=== PATIENT | male | born 1990 | race Caucasian/White ===

== ENCOUNTER 2016-08-09 15:58 | Emergency (ER) | payer SELFPAY ==
[2016-08-09 16:10] VITALS: RESP 17; TEMP 97.4
--- NOTE | 2016-08-09 16:17 | ED ---
General Adult HPI - General Chief complaint: Nausea/Vomiting/Diarrhea Stated complaint: Diareah/chest cold Time Seen by Provider: 08/09/16 16:06 Source: patient, RN notes reviewed Mode of arrival: ambulatory Limitations: no limitations - History of Present Illness Initial comments: This is a 26-year-old male who presents with diarrhea 7 days. Patient states the diarrhea is very watery and he goes about 5 times per day. Patient states he has been keeping down food and has been drinking fluids. Patient denies any nausea or vomiting. Patient does state he has had some mild abdominal discomfort associated with the diarrhea. Patient denies any fever/chills, cough , shortness of breath. Patient does admit to some mild congestion. Patient denies any sick contacts or recent travel. Patient denies being on any recent antibiotics. Patient denies any hematochezia. Patient denies any recent shortness breath, chest pain, back pain, numbness, tingling, hematuria, headache, or visual changes, or any other complaints. - Related Data Previous Rx's Medication Instructions Recorded Ibuprofen [Motrin] 600 mg PO Q6HR PRN #20 tab 05/07/16 Allergies Allergy/AdvReac Type Severity Reaction Status Date / Time No Known Allergies Allergy Verified 08/09/16 16:10 Review of Systems ROS Statement: Those systems with pertinent positive or pertinent negative responses have been documented in the HPI. ROS Other: All systems not noted in ROS Statement are negative. Past Medical History Past Medical History: No Reported History Additional Past Medical History / Comment(s): MIGRAINE History of Any Multi-Drug Resistant Organisms: MRSA Date of last positivie culture/infection: 2005 MDRO Source:: buttocks Past Surgical History: No Surgical Hx Reported Past Psychological History: ADD/ADHD, Bipolar, Depression Smoking Status: Current every day smoker Past Alcohol Use History: None Reported Past Drug Use History: None Reported General Exam - General Exam Comments Initial Comments: General: The patient is awake and alert, in no distress, and does not appear acutely ill. Eye: Pupils are equal, round and reactive to light, extra-ocular movements are intact. No nystagmus. There is normal conjunctiva bilaterally. No signs of icterus. Ears: TMs pink and pearly with intact cone of light bilaterally. Normal external ear canals Nose: Nasal turbinates pink and moist Mouth and throat: There are moist mucous membranes and no oral lesions. Neck: The neck is supple, there is no tenderness or JVD. Cardiovascular: There is a regular rate and rhythm. No murmur, rub or gallop is appreciated. Respiratory: Lungs are clear to auscultation, respirations are non-labored, breath sounds are equal. No wheezes, stridor, rales, or rhonchi. Gastrointestinal: Soft, non-distended, non-tender abdomen without masses or organomegaly noted. There is no rebound or guarding present. Bowel sounds are unremarkable. Musculoskeletal: Normal ROM, no tenderness. Strength 5/5. Sensation intact. Radial pPulses equal bilaterally 2+. Neurological: A&O x 3. CN II-XII intact, There are no obvious motor or sensory deficits. Coordination appears grossly intact. Speech is normal. Skin: Skin is warm and dry and no rashes or lesions are noted. Psychiatric: Cooperative, appropriate mood & affect, normal judgment. Limitations: no limitations Course Vital Signs 08/09/16 16:08 Temperature 97.4 F L Pulse Rate 80 Respiratory 17 Rate Blood Pressure 126/70 Medical Decision Making - Medical Decision Making This is a 26-year-old male presents with diarrhea 7 days. On physical exam abdomen is soft, nontender, nondistended there is no guarding or rigidity. No right lower quadrant tenderness or rebound tenderness. Patient is afebrile in the EC today. Mucous membranes are moist. Basic labs were drawn and reviewed. CBC and BMP were within normal limits. Stool cultures are pending, C. diff and ova and parasites are pending as patient could not give a sample today. I discussed results with patient. I discussed with patient to be sure to drink plenty of fluids. Discussed the patient should send in stool cultures as soon as possible. I discussed [id number] Pepto-Bismol for symptomatic relief. I discussed return parameters. Discussed that patient needs to follow-up with his primary care physician in the next 1-2 days or return to the EC for any worsening symptoms or for any further concerns. Patient was given a primary care referral today. Patient was receptive to this plan. Patient was discharged home. - Lab Data Result diagrams: 08/09/16 16:55 08/09/16 16:55 Lab Results 08/09/16 08/09/16 Range/Units 16:55 16:55 WBC 4.0 (3.8-10.6) k/uL RBC 5.20 (4.30-5.90) m/uL Hgb 15.4 (13.0-17.5) gm/dL Hct 44.5 (39.0-53.0) % MCV 85.5 (80.0-100.0) fL MCH 29.5 (25.0-35.0) pg MCHC 34.5 (31.0-37.0) g/dL RDW 11.9 (11.5-15.5) % Plt Count 165 (150-450) k/uL Neutrophils % 56 % Lymphocytes % 33 % Monocytes % 7 % Eosinophils % 1 % Basophils % 1 % Neutrophils # 2.2 (1.3-7.7) k/uL Lymphocytes # 1.3 (1.0-4.8) k/uL Monocytes # 0.3 (0-1.0) k/uL Eosinophils # 0.0 (0-0.7) k/uL Basophils # 0.0 (0-0.2) k/uL Sodium 141 (137-145) mmol/L Potassium 4.7 (3.5-5.1) mmol/L Chloride 106 (98-107) mmol/L Carbon Dioxide 25 (22-30) mmol/L Anion Gap 10 mmol/L BUN 14 (9-20) mg/dL Creatinine 0.85 (0.66-1.25) mg/dL Est GFR (MDRD) Af Amer >60 (>60 ml/min/1.73 sqM) Est GFR (MDRD) Non-Af >60 (>60 ml/min/1.73 sqM) Glucose 82 (74-99) mg/dL Calcium 9.4 (8.4-10.2) mg/dL Disposition Clinical Impression: Acute diarrhea Disposition: HOME SELF-CARE Condition: Good Instructions: Acute Diarrhea (ED) Additional Instructions: Please provide stool cultures as soon as possible and follow up with your primary care physician in the next 1-2 days. Please use [id number] Pepto- Bismol for symptom relief. Please be sure to drink plenty of fluids. Please return to the EC for any worsening symptoms or for any further concerns. Referrals: None,Stated [Primary Care Provider] - 1-2 days Ernesto Harman MD [REFERRING] - 1-2 days Charmaine Herbert III, MD [STAFF PHYSICIAN] - 1-2 days Greg Okeefe MD [STAFF PHYSICIAN] - 1-2 days Time of Disposition: 17:27
[2016-08-09 17:07] LABS: Basophils % (A) 1 %; CH 30.1; CHCM 35.3; Eosinophils % (A) 1 %; HCT 44.5 % (39.0-53.0); HDW 2.69; HGB 15.4 gm/dL (13.0-17.5); Luc # (Auto) 0.08; Luc % (Auto) 2; Lymphocytes # (A) 1.3 k/uL (1.0-4.8); Lymphocytes % (A) 33 %; MCH 29.5 pg (25.0-35.0); MCHC 34.5 g/dL (31.0-37.0); MCV 85.5 fL (80.0-100.0); Mean Platelet Volume 9.4; Monocytes # (A) 0.3 k/uL (0-1.0); Monocytes % (A) 7 %; Neutrophils # (A) 2.2 k/uL (1.3-7.7); Neutrophils % (A) 56 %; RDW 11.9 % (11.5-15.5); WBC (Perox) 3.57
[2016-08-09 17:14] LABS: Anion Gap 10 mmol/L; Blood Urea Nitrogen 14 mg/dL (9-20); Calcium 9.4 mg/dL (8.4-10.2); Carbon Dioxide 25 mmol/L (22-30); Chloride 106 mmol/L (98-107); Glucose 82 mg/dL (74-99); Non-African American GFR(MDRD) >60 (>60 ml/min/1.73 sqM); Potassium 4.7 mmol/L (3.5-5.1); Sodium 141 mmol/L (137-145)
[2016-08-09 17:44] VITALS: BP 122/72; PULSE 78
== END 2016-08-09 17:44 | disposition home or self-care (01) ==
LOC: EC 15:58
DX: R19.7 Diarrhea, unspecified (principal); R09.89 Other specified symptoms and signs involving the circulatory and respiratory systems; F17.200 Nicotine dependence, unspecified, uncomplicated
CPT/HCPCS: 36415; 80048; 85025; 99284

== ENCOUNTER 2016-08-16 15:14 | Emergency (ER) | payer SELFPAY ==
[2016-08-16 15:30] VITALS: BP 118/64; PULSE 85; RESP 17; TEMP 98.4
[2016-08-16] MEDS ORDERED: ONDANSETRON ODT 4 MG TAB PO STA (15:45)
--- NOTE | 2016-08-16 15:47 | ED ---
General Adult HPI - General Chief complaint: Nausea/Vomiting/Diarrhea Stated complaint: abdominal pain Time Seen by Provider: 08/16/16 15:33 Source: patient, RN notes reviewed Mode of arrival: ambulatory Limitations: no limitations - History of Present Illness Initial comments: Physical 26-year-old male presents with vomiting that started today. Patient states he's had 4 episodes of vomiting this morning but this has not reoccurred. Patient is eating and drinking without problems. Patient denies any fever but complains of some mild congestion and intermittent sore throat. Patient states he is some mild abdominal pain. Patient denies any sick contacts. Patient denies any constipation, diarrhea, hematochezia, hematemesis and patient denies any cough. Patient denies any recent fever, chills, shortness breath, chest pain, back pain, numbness, tingling, hematuria, dysuria, headache, or visual changes, or any other complaints. - Related Data Previous Rx's Medication Instructions Recorded Ibuprofen [Motrin] 600 mg PO Q6HR PRN #20 tab 05/07/16 Ondansetron Odt [Zofran Odt] 4 mg PO Q8H 3 Days 08/16/16 Allergies Allergy/AdvReac Type Severity Reaction Status Date / Time No Known Allergies Allergy Verified 08/16/16 15:28 Review of Systems ROS Statement: Those systems with pertinent positive or pertinent negative responses have been documented in the HPI. ROS Other: All systems not noted in ROS Statement are negative. Past Medical History Past Medical History: No Reported History Additional Past Medical History / Comment(s): MIGRAINE History of Any Multi-Drug Resistant Organisms: MRSA Date of last positivie culture/infection: 2005 MDRO Source:: buttocks Past Surgical History: No Surgical Hx Reported Past Psychological History: ADD/ADHD, Bipolar, Depression Smoking Status: Current every day smoker Past Alcohol Use History: None Reported Past Drug Use History: None Reported General Exam - General Exam Comments Initial Comments: General: The patient is awake and alert, in no distress, and does not appear acutely ill. Eye: Pupils are equal, round and reactive to light, extra-ocular movements are intact. No nystagmus. There is normal conjunctiva bilaterally. No signs of icterus. Ears: TMs pink and pearly with intact cone of light bilaterally. Normal external ear canals Nose: Nasal turbinates pink and moist Mouth and throat: There are moist mucous membranes and no oral lesions. Neck: The neck is supple, there is no tenderness or JVD. Cardiovascular: There is a regular rate and rhythm. No murmur, rub or gallop is appreciated. Respiratory: Lungs are clear to auscultation, respirations are non-labored, breath sounds are equal. No wheezes, stridor, rales, or rhonchi. Gastrointestinal: Soft, non-distended, non-tender abdomen without masses or organomegaly noted. There is no rebound or guarding present. No CVA tenderness. Bowel sounds are unremarkable. Musculoskeletal: Normal ROM, no tenderness. Strength 5/5. Sensation intact. Radial Pulses equal bilaterally 2+. Neurological: A&O x 3. CN II-XII intact, There are no obvious motor or sensory deficits. Coordination appears grossly intact. Speech is normal. Skin: Skin is warm and dry and no rashes or lesions are noted. Psychiatric: Cooperative, appropriate mood & affect, normal judgment. Limitations: no limitations Course Vital Signs 08/16/16 15:28 Temperature 98.4 F Pulse Rate 85 Respiratory 17 Rate Blood Pressure 118/64 O2 Sat by Pulse 98 Oximetry Medical Decision Making - Medical Decision Making This is a 26-year-old male presents with vomiting that started today. On physical exam abdomen is soft, nontender, nondistended and patient is afebrile in the EC. Patient has some mild congestion but lungs are clear to auscultation bilaterally. Patient was given Zofran in the EC today. Influenza was checked and came back negative. Patient states he feels much better after a dose of Zofran. I discussed that patient will be sent home with a prescription for Zofran. Patient did not have an episode of emesis in the EC today. I discussed the patient is to drink plenty of fluids. I discussed return parameters. Discussed that patient should follow up with PCP in one to 2 days or return to the EC for any worsening symptoms or for any further concerns. Patient was receptive to this plan and patient will be discharged home. - Lab Data Lab Results 08/16/16 Range/Units 16:08 Influenza Type A RNA Not Detected (Not Detectd) Influenza Type B (PCR) Not Detected (Not Detectd) Disposition Clinical Impression: Vomiting Disposition: HOME SELF-CARE Condition: Good Instructions: Acute Nausea and Vomiting (ED) Additional Instructions: Please use Zofran as prescribed. Please be sure to drink plenty of fluids. Please use medication as discussed. Please follow-up with family doctor in the next 2 days of symptoms have not improved. Please return to emergency room if the symptoms increase or worsen or for any other concerns. Prescriptions: Ondansetron Odt [Zofran Odt] 4 mg PO Q8H 3 Days Referrals: None,Stated [Primary Care Provider] - 1-2 days Renetta Bueno MD [STAFF PHYSICIAN] - 1-2 days Ernesto Harman MD [REFERRING] - 1-2 days Time of Disposition: 16:55
== END 2016-08-16 17:02 | disposition home or self-care (01) ==
LOC: EC 15:14
DX: R11.10 Vomiting, unspecified (principal); F17.200 Nicotine dependence, unspecified, uncomplicated; Z86.14 Personal history of Methicillin resistant Staphylococcus aureus infection
CPT/HCPCS: 87502; 99284

== ENCOUNTER 2017-03-26 | Emergency (ER) | payer OTHER ==
--- NOTE | 2017-03-26 00:45 | ED ---
General Adult HPI - General Chief complaint: Skin/Abscess/Foreign Body Stated complaint: bruise on back Time Seen by Provider: 03/26/17 00:10 Source: patient, RN notes reviewed Mode of arrival: ambulatory Limitations: no limitations - History of Present Illness Initial comments: Patient 26-year-old male who presents emergency room today with chief complaint of a bruise to his back. Does admit that he had a clot in the middle of his back and his friend tried to rub them not noticed that there was a bruise. He says bruises gone. Cystitis tenderness was earlier in the day. Denies any other complaints or symptoms. Patient denies any recent fever, chills, shortness of breath, chest pain, abdominal pain, nausea or vomiting, numbness or tingling, dysuria or hematuria, constipation or diarrhea, headaches or visual changes, or any other complaints. - Related Data Home Medications Medication Instructions Recorded Confirmed No Known Home Medications [No 03/26/17 03/26/17 Known Home Medications] Allergies Allergy/AdvReac Type Severity Reaction Status Date / Time No Known Allergies Allergy Verified 03/26/17 00:04 Review of Systems ROS Statement: Those systems with pertinent positive or pertinent negative responses have been documented in the HPI. ROS Other: All systems not noted in ROS Statement are negative. Past Medical History Past Medical History: No Reported History Additional Past Medical History / Comment(s): MIGRAINE History of Any Multi-Drug Resistant Organisms: MRSA Date of last positivie culture/infection: 2005 MDRO Source:: buttocks Past Surgical History: No Surgical Hx Reported Past Psychological History: ADD/ADHD, Bipolar, Depression Smoking Status: Current every day smoker Past Alcohol Use History: None Reported Past Drug Use History: None Reported General Exam - General Exam Comments Initial Comments: General: The patient is awake and alert, in no distress, and does not appear acutely ill. Eye: Pupils are equal, round and reactive to light, extra-ocular movements are intact. No nystagmus. There is normal conjunctiva bilaterally. No signs of icterus. Ears, nose, mouth and throat: There are moist mucous membranes and no oral lesions. Neck: The neck is supple, there is no tenderness or JVD. Cardiovascular: There is a regular rate and rhythm. No murmur, rub or gallop is appreciated. Respiratory: Lungs are clear to auscultation, respirations are non-labored, breath sounds are equal. No wheezes, stridor, rales, or rhonchi. Musculoskeletal: Normal ROM, no tenderness. Strength 5/5. Sensation intact. Pulses equal bilaterally 2+. Neurological: A&O x 3. CN II-XII intact, There are no obvious motor or sensory deficits. Coordination appears grossly intact. Speech is normal. Skin: Skin is warm and dry and no rashes or lesions are noted. Psychiatric: Cooperative, appropriate mood & affect, normal judgment. Limitations: no limitations Course Vital Signs 03/26/17 00:02 Temperature 98.2 F Pulse Rate 87 Respiratory 20 Rate Blood Pressure 148/85 O2 Sat by Pulse 98 Oximetry Medical Decision Making - Medical Decision Making Patient has normal exam here in the emergency room. No tenderness over the thoracic or lumbar spine. No bruising or swelling. No tenderness or pain on exam. Was discussed with patient about possible spasm. Advised to follow up with Family doctor. Patient asymptomatic here in emergency room. Disposition Clinical Impression: Back pain Disposition: HOME SELF-CARE Condition: Good Instructions: Back Pain (ED) Additional Instructions: Please use medication as discussed. Please follow-up with family doctor in the next 2 days of symptoms have not improved. Please return to emergency room if the symptoms increase or worsen or for any other concerns. Referrals: None,Stated [Primary Care Provider] - 1-2 days Time of Disposition: 00:44
[2017-03-26 01:05] VITALS: BP 132/83; PULSE 80; RESP 16; TEMP 97.8
== END 2017-03-26 01:13 | disposition home or self-care (01) ==
LOC: EC
DX: M54.6 Pain in thoracic spine (principal); F17.200 Nicotine dependence, unspecified, uncomplicated; Z86.14 Personal history of Methicillin resistant Staphylococcus aureus infection
CPT/HCPCS: 99283

== ENCOUNTER 2017-03-28 16:00 | Emergency (ER) | payer OTHER ==
[2017-03-28 16:17] VITALS: RESP 18
--- NOTE | 2017-03-28 16:38 | ED ---
General Adult HPI - General Source: patient, RN notes reviewed Mode of arrival: ambulatory Limitations: no limitations <Myra Hdz - Last Filed: 03/28/17 19:57> <Landon Mayo - Last Filed: 03/28/17 21:05> - General Chief complaint: Psychiatric Symptoms Stated complaint: Mental Health Time Seen by Provider: 03/28/17 16:27 - History of Present Illness Initial comments: 26-year-old male presents to the emergency department with a chief complaint of suicidal ideation. Patient states ever since June 19 when his child he 's been having issues. He is nontoxic anyone about them and they're just getting worse. He states now having thoughts to hang himself or cut his wrists. Patient states that he does not have any health concerns at this time. Patient states that he just needs help. He has been admitted to mental health in the past. Patient denies any recent fever, chills, shortness of breath , chest pain, back pain, abdominal pain, nausea vomiting, numbness or tingling, dysuria or hematuria, constipation or diarrhea, headaches or visual changes, or any other current symptoms. (Myra Hdz) - Related Data Home Medications Medication Instructions Recorded Confirmed No Known Home Medications [No 03/26/17 03/28/17 Known Home Medications] Allergies Allergy/AdvReac Type Severity Reaction Status Date / Time No Known Allergies Allergy Verified 03/28/17 16:36 Review of Systems ROS Other: All systems not noted in ROS Statement are negative. <Myra Hdz - Last Filed: 03/28/17 19:57> ROS Other: All systems not noted in ROS Statement are negative. <Landon Mayo - Last Filed: 03/28/17 21:05> ROS Statement: Those systems with pertinent positive or pertinent negative responses have been documented in the HPI. Past Medical History Past Medical History: No Reported History Additional Past Medical History / Comment(s): MIGRAINE History of Any Multi-Drug Resistant Organisms: MRSA Date of last positivie culture/infection: 2005 MDRO Source:: buttocks Past Surgical History: No Surgical Hx Reported Past Psychological History: ADD/ADHD, Bipolar, Depression Smoking Status: Current every day smoker Past Alcohol Use History: Daily Past Drug Use History: None Reported <Myra Hdz - Last Filed: 03/28/17 19:57> General Exam Limitations: no limitations General appearance: alert, in no apparent distress ENT exam: Present: normal exam, mucous membranes moist Neck exam: Present: normal inspection. Absent: tenderness, meningismus, lymphadenopathy Respiratory exam: Present: normal lung sounds bilaterally. Absent: respiratory distress, wheezes, rales, rhonchi, stridor Cardiovascular Exam: Present: regular rate, normal rhythm, normal heart sounds. Absent: systolic murmur, diastolic murmur, rubs, gallop, clicks Extremities exam: Present: normal inspection, full ROM, normal capillary refill. Absent: tenderness, pedal edema, joint swelling, calf tenderness Neurological exam: Present: alert, oriented X3 Psychiatric exam: Present: suicidal ideation. Absent: homicidal ideation Skin exam: Present: warm, dry, intact, normal color. Absent: rash <Myra Hdz - Last Filed: 03/28/17 19:57> Course <Myra Hdz - Last Filed: 03/28/17 19:57> <Landon Mayo - Last Filed: 03/28/17 21:05> Vital Signs 03/28/17 03/28/17 16:13 20:51 Temperature 97.6 F 97.3 F L Pulse Rate 79 63 Respiratory 18 18 Rate Blood Pressure 139/74 135/62 O2 Sat by Pulse 99 100 Oximetry - Reevaluation(s) Reevaluation #1: 03/28/17 19:57 THis case will be signed out to Dr. Mayo. (Myra Hdz) Medical Decision Making <Myra Hdz - Last Filed: 03/28/17 19:57> <Landon Mayo - Last Filed: 03/28/17 21:05> - Medical Decision Making 26-year-old male presents emergency department with chief complaint of suicidal ideation. At this time he does not appear to be suffering from any acute medical emergencies. This time the patient is cleared to be evaluated by psychiatry. (Myra Hdz) Patient was evaluated by EPS to the emergency department. He was denying suicidal ideation at that time. He thinks he just needed to talk to his issues with someone. He was given outpatient referral as well as the emergency psychiatric hotline. I reevaluated the patient, he denies suicidal ideation be. He is comfortable with discharge and feels safe. (Landon Mayo) - Lab Data Lab Results 03/28/17 Range/Units 19:00 Urine Opiates Screen Not Detected (NotDetected) Ur Oxycodone Screen Not Detected (NotDetected) Urine Methadone Screen Not Detected (NotDetected) Ur Propoxyphene Screen Not Detected (NotDetected) Ur Barbiturates Screen Not Detected (NotDetected) U Tricyclic Antidepress Not Detected (NotDetected) Ur Phencyclidine Scrn Not Detected (NotDetected) Ur Amphetamines Screen Not Detected (NotDetected) U Methamphetamines Scrn Not Detected (NotDetected) U Benzodiazepines Scrn Not Detected (NotDetected) Urine Cocaine Screen Not Detected (NotDetected) U Marijuana (THC) Screen Not Detected (NotDetected) Disposition <Myra Hdz - Last Filed: 03/28/17 19:57> Time of Disposition: 21:05 <Landon Mayo - Last Filed: 03/28/17 21:05> Clinical Impression: Depression Disposition: HOME SELF-CARE Condition: Good Instructions: Depression (ED) Additional Instructions: Patient has outpatient psychiatric follow-up. Return to the emergency department with worsening symptoms Referrals: None,Stated [Primary Care Provider] - 1-2 days
[2017-03-28 20:52] VITALS: BP 135/62; PULSE 63; TEMP 97.3
== END 2017-03-28 21:24 | disposition home or self-care (01) ==
LOC: EC 16:00
DX: F32.9 Major depressive disorder, single episode, unspecified (principal); R45.851 Suicidal ideations; F17.200 Nicotine dependence, unspecified, uncomplicated
CPT/HCPCS: 80306; 82075; 99284

== ENCOUNTER 2017-10-14 02:40 | Emergency (ER) | payer OTHER ==
[2017-10-14] MEDS ORDERED: SODIUM CHLORIDE 0.9% 1,000 ML IV ONE (02:50)
--- NOTE | 2017-10-14 02:52 | ED ---
General Adult HPI - General Source: RN notes reviewed <Jackson Khan - Last Filed: 10/14/17 06:36> <Landon Mayo - Last Filed: 10/14/17 08:43> - General Stated complaint: mental health Time Seen by Provider: 10/14/17 02:45 - History of Present Illness Initial comments: This is a 27 her old male who presents emergency Department stating he is suicidal. Patient states he drank a bunch of liquor as well because he is trying to deal with the pain is not seeing his son very often. Patient states he thinks he needs help so that is why came to the emergency department. Patient denies any chest pain palpitations difficulty breathing shortness of breath per patient denies any abdominal pain patient denies nausea vomiting diarrhea. Patient denies any fever chills or cough. (Jackson Khan) - Related Data Home Medications Medication Instructions Recorded Confirmed No Known Home Medications [No 03/26/17 10/14/17 Known Home Medications] Allergies Allergy/AdvReac Type Severity Reaction Status Date / Time No Known Allergies Allergy Verified 10/14/17 08:17 Review of Systems ROS Other: All systems not noted in ROS Statement are negative. <Jackson Khan - Last Filed: 10/14/17 06:36> ROS Other: All systems not noted in ROS Statement are negative. <Landon Mayo - Last Filed: 10/14/17 08:43> ROS Statement: Those systems with pertinent positive or pertinent negative responses have been documented in the HPI. Past Medical History Past Medical History: No Reported History Additional Past Medical History / Comment(s): MIGRAINE History of Any Multi-Drug Resistant Organisms: MRSA Date of last positivie culture/infection: 2005 MDRO Source:: buttocks Past Surgical History: No Surgical Hx Reported Past Psychological History: ADD/ADHD, Bipolar, Depression Smoking Status: Current every day smoker Past Alcohol Use History: Daily Past Drug Use History: None Reported <Jackson Khan - Last Filed: 10/14/17 06:36> General Exam <Jackson Khan - Last Filed: 10/14/17 06:36> <Landon Mayo - Last Filed: 10/14/17 08:43> - General Exam Comments Initial Comments: GENERAL: Patient is well-developed and well-nourished. Patient is nontoxic and well- hydrated and is in no acute distress. Patient appears intoxicated ENT: Neck is soft and supple. No significant lymphadenopathy is noted. Oropharynx is clear. Moist mucous membranes. Neck has full range of motion without eliciting any pain EYES: The sclera were anicteric and conjunctiva were pink and moist. Extraocular movements were intact and pupils were equal round and reactive to light. Eyelids were unremarkable. PULMONARY: Unlabored respirations. Good breath sounds bilaterally. No audible rales rhonchi or wheezing was noted. CARDIOVASCULAR: There is a regular rate and rhythm without any murmurs gallops or rubs. ABDOMEN: Soft and nontender with normal bowel sounds. SKIN: Skin is clear with no lesions or rashes and otherwise unremarkable. NEUROLOGIC: Patient is alert and oriented x3. Cranial nerves II through XII are grossly intact. Motor and sensory are also intact. Normal speech, volume and content. Symmetrical smile. MUSCULOSKELETAL: Normal extremities with adequate strength and full range of motion. No lower extremity swelling or edema. No calf tenderness. LYMPHATICS: No significant lymphadenopathy is noted PSYCHIATRIC: Patient states he suicidal (Jackson Khan) Vital Signs 10/14/17 10/14/17 10/14/17 02:52 04:26 05:29 Temperature 98.4 F 97.8 F 98.4 F Pulse Rate 87 105 H 71 Respiratory 18 14 14 Rate Blood Pressure 145/104 116/57 102/53 O2 Sat by Pulse 96 96 98 Oximetry Medical Decision Making <Jackson Khan - Last Filed: 10/14/17 06:36> <Landon Mayo - Last Filed: 10/14/17 08:43> - Medical Decision Making Dr. Mayo will be taking over the care of this patient at 7 AM (Jackson Khan) Patient's care is signed out at shift change awaiting EPS evaluation. Patient is clinically sober. He was seen by EPS, no longer suicidal. He was given outpatient follow-up for [facility]. He is going to leave the emergency department and travel directly to [facility]. He is given a bus ticket in the emergency department. I did reevaluate the patient is no longer suicidal, he is agreeable with this plan. (Landon Mayo) - Lab Data Lab Results 10/14/17 Range/Units 02:45 Urine Opiates Screen Not Detected (NotDetected) Ur Oxycodone Screen Not Detected (NotDetected) Urine Methadone Screen Not Detected (NotDetected) Ur Propoxyphene Screen Not Detected (NotDetected) Ur Barbiturates Screen Not Detected (NotDetected) U Tricyclic Antidepress Not Detected (NotDetected) Ur Phencyclidine Scrn Not Detected (NotDetected) Ur Amphetamines Screen Not Detected (NotDetected) U Methamphetamines Scrn Not Detected (NotDetected) U Benzodiazepines Scrn Not Detected (NotDetected) Urine Cocaine Screen Not Detected (NotDetected) U Marijuana (THC) Screen Not Detected (NotDetected) Disposition <Jackson Khan - Last Filed: 10/14/17 06:36> Is patient prescribed a controlled substance at discharge?: No Time of Disposition: 08:43 <Landon Mayo - Last Filed: 10/14/17 08:43> Clinical Impression: Depression, Alcohol intoxication Disposition: HOME SELF-CARE Condition: Good Instructions: Depression (ED), Alcohol Intoxication (ED) Additional Instructions: Please follow up with community mental health today. Referrals: None,Stated [Primary Care Provider] - 1-2 days
[2017-10-14 03:23] LABS: Amphetamine Screen,Urine Not Detected (NotDetected); Barbiturate Screen,Urine Not Detected (NotDetected); Benzodiazepines Screen,Urine Not Detected (NotDetected); Cocaine Screen,Urine Not Detected (NotDetected); Methadone Screen, Urine Not Detected (NotDetected); Opiate Screen,Urine Not Detected (NotDetected); Oxycodone Screen, Urine Not Detected (NotDetected); Phencyclidine Screen,Urine Not Detected (NotDetected); Tricyclic Antidepressant,Urine Not Detected (NotDetected); Urn Cannabinoid Scrn Not Detected (NotDetected)
[2017-10-14 08:56] VITALS: BP 91/53; PULSE 86; RESP 19; TEMP 98.2
== END 2017-10-14 08:56 | disposition home or self-care (01) ==
LOC: EC 02:40
DX: F32.9 Major depressive disorder, single episode, unspecified (principal); F10.120 Alcohol abuse with intoxication, uncomplicated; F17.200 Nicotine dependence, unspecified, uncomplicated; Z86.14 Personal history of Methicillin resistant Staphylococcus aureus infection
CPT/HCPCS: 80306; 82075; 96360; 99285

== ENCOUNTER 2017-10-19 16:03 | Inpatient (IN) | payer MEDICAID, OTHER ==
--- NOTE | 2017-10-19 16:27 | ED ---
General Adult HPI - General Chief complaint: Psychiatric Symptoms Stated complaint: Mental health Time Seen by Provider: 10/19/17 16:12 Source: patient, EMS Mode of arrival: EMS Limitations: no limitations - History of Present Illness Initial comments: Patient 27-year-old male presented to the emergency room today with chief complaint of suicidal ideation. He does not that he's been drinking past 4 days. States he had a drinker.. Patient does admit that he's had thoughts of hurting someone else as well. He gives us a specific somebody that he is upset with. He states that his had thoughts of using a condom that they have against them. He does not give this person's name. Patient states that he's had no specific thoughts of hurting himself. He denies any other complaints or associated symptoms at this time. Denies any fever or chills. Denies any abdominal, back pain, chest pain, headache, visual change. - Related Data Home Medications Medication Instructions Recorded Confirmed No Known Home Medications [No 03/26/17 10/19/17 Known Home Medications] Allergies Allergy/AdvReac Type Severity Reaction Status Date / Time No Known Allergies Allergy Verified 10/19/17 18:18 Review of Systems ROS Statement: Those systems with pertinent positive or pertinent negative responses have been documented in the HPI. ROS Other: All systems not noted in ROS Statement are negative. Past Medical History Past Medical History: No Reported History Additional Past Medical History / Comment(s): MIGRAINE History of Any Multi-Drug Resistant Organisms: MRSA Date of last positivie culture/infection: 2005 MDRO Source:: buttocks Past Surgical History: No Surgical Hx Reported Past Psychological History: ADD/ADHD, Bipolar, Depression Smoking Status: Current every day smoker Past Alcohol Use History: Daily Past Drug Use History: None Reported General Exam - General Exam Comments Initial Comments: General: The patient is awake and alert, in no distress, and does not appear acutely ill. Eye: Pupils are equal, round and reactive to light, extra-ocular movements are intact. No nystagmus. There is normal conjunctiva bilaterally. Neck: The neck is supple Cardiovascular: There is a regular rate and rhythm. No murmur, rub or gallop is appreciated. Respiratory: Lungs are clear to auscultation, respirations are non-labored, breath sounds are equal. No wheezes, stridor, rales, or rhonchi. Musculoskeletal: Normal ROM, no tenderness. Strength 5/5. Sensation intact. Neurological: A&O x 3. CN II-XII intact, There are no obvious motor or sensory deficits. Coordination appears grossly intact. Speech is normal. Skin: Skin is warm and dry and no rashes or lesions are noted. Psychiatric: Cooperative. Limitations: no limitations Course Vital Signs 10/19/17 10/19/17 16:12 16:21 Temperature 98.2 F Pulse Rate 96 Respiratory 18 16 Rate Blood Pressure 150/85 O2 Sat by Pulse 95 Oximetry Medical Decision Making - Medical Decision Making Patient has been seen by mental emergency room and they recommend admission. Patient willing to sign himself in. - Lab Data Lab Results 10/19/17 Range/Units 16:50 Urine Opiates Screen Not Detected (NotDetected) Ur Oxycodone Screen Not Detected (NotDetected) Urine Methadone Screen Not Detected (NotDetected) Ur Propoxyphene Screen Not Detected (NotDetected) Ur Barbiturates Screen Not Detected (NotDetected) U Tricyclic Antidepress Not Detected (NotDetected) Ur Phencyclidine Scrn Not Detected (NotDetected) Ur Amphetamines Screen Not Detected (NotDetected) U Methamphetamines Scrn Not Detected (NotDetected) U Benzodiazepines Scrn Not Detected (NotDetected) Urine Cocaine Screen Not Detected (NotDetected) U Marijuana (THC) Screen Not Detected (NotDetected) Disposition Clinical Impression: Homicidal ideation Disposition: TRANSFER TO PSYCH HOSP/UNIT Condition: Stable Is patient prescribed a controlled substance at d/c from ED?: No Referrals: None,Stated [Primary Care Provider] - 1-2 days Time of Disposition: 19:01
[2017-10-19 17:22] LABS: Amphetamine Screen,Urine Not Detected (NotDetected); Barbiturate Screen,Urine Not Detected (NotDetected); Benzodiazepines Screen,Urine Not Detected (NotDetected); Cocaine Screen,Urine Not Detected (NotDetected); Methadone Screen, Urine Not Detected (NotDetected); Opiate Screen,Urine Not Detected (NotDetected); Oxycodone Screen, Urine Not Detected (NotDetected); Phencyclidine Screen,Urine Not Detected (NotDetected); Tricyclic Antidepressant,Urine Not Detected (NotDetected); Urn Cannabinoid Scrn Not Detected (NotDetected)
[2017-10-19] MEDS ORDERED: MAGNESIUM HYDROXIDE 2,400 MG/10 ML CUP PO PRN (19:11)
[2017-10-19] MEDS ORDERED: MAG HYDROX/AL HYDROX/SIMETH 30 ML CUP PO PRN (19:11)
[2017-10-19] MEDS ORDERED: ZIPRASIDONE 20 MG VIAL IM PRN (19:11)
[2017-10-19] MEDS ORDERED: LORazepam 2 MG/ML INJ IM PRN (19:14)
[2017-10-19] MEDS: ACETAMINOPHEN TAB 325 MG TAB PO PRN (20:32)
[2017-10-20 07:00] VITALS: PULSE 69
--- NOTE | 2017-10-20 08:26 | P.MDCNMH ---
History of Present Illness H&P Date: 10/19/17 Chief Complaint: medical management 27-year-old male with history of schizophrenia and bipolar disorder. Medicine was counseled for medical management Patient was brought to the hospital due to suicidal and homicidal ideation. Patient reports that he does not drink a regular basis however over the past 3- 4 days he's been on a binge drink with his girlfriend and while under the ambulance he made some suicidal and homicidal remarks for which his girlfriend notified the police and brought to the hospital. When patient asked about his homicidal thoughts he said it's against a person who made him upset. But he refused to name the person and at this time and claims that these homicidal thoughts has resolved . Currently he denies any suicidal or homicidal ideation He denies any physical complaints or medical concerns at this point Review of Systems Constitutional: Patient denies fever, denies chills, denies night sweating, denies significant weight changes Eyes: Patient denies visual changes, denies eye pain ENT: Patient denies ear pain, denies rhinorrhea, denies sore throat Cardiovascular: Patient denies chest pain, denies exertional dyspnea, denies peripheral leg edema, denies orthopnea, denies paroxysmal nocturnal dyspnea Respiratory:Patient denies cough, denies wheezing, denies shortness of breath Gastrointestinal: Patient denies diarrhea, denies constipation, denies nausea , denies vomiting, denies abdominal pain Genitourinary: Patient denies dysuria, denies hematuria, denies changes in urinary habits, denies genital lesions Musculoskeletal: Patient denies muscle pain, denies joint pain Psychiatric: Patient reports anxiety, reports depression, currently denies any suicidal or homicidal ideation Endocrine: Patient denies heat intolerance, denies cold intolerance, denies excessive thirst, denies polyuria Neurological: Patient denies focal neurologic deficits, denies weakness, denies numbness, denies tingling Hem/Lymphatic: Patient denies bleeding tendency, denies bruising, denies swollen lymph glands Allergic/Immun: Patient denies recent allergic reactions Skin: Patient denies rashes, denies pruritis, denies ulcers Past Medical History Past Medical History: No Reported History Additional Past Medical History / Comment(s): MIGRAINE History of Any Multi-Drug Resistant Organisms: MRSA Date of last positivie culture/infection: 2005 MDRO Source:: buttocks Past Surgical History: No Surgical Hx Reported Smoking Status: Current every day smoker - Past Family History Family Additional Family Medical History / Comment(s): Mother with cancer however patient is not aware which type Medications and Allergies Home Medications and Allergies Comment(s): Patient denies taking any medications at home He is not aware that he needs to be on any prescriptions Home Medications Medication Instructions Recorded Confirmed Type No Known Home Medications [No 03/26/17 10/19/17 History Known Home Medications] Allergies Allergy/AdvReac Type Severity Reaction Status Date / Time No Known Allergies Allergy Verified 10/19/17 18:18 Physical Exam Vitals: Vital Signs Temp Pulse Pulse Resp BP BP Pulse Ox 10/20/17 06:58 98.3 F 69 16 125/59 10/19/17 19:32 98.3 F 104 H 16 131/84 98 10/19/17 19:20 97.1 F L 60 18 129/59 99 10/19/17 16:21 16 10/19/17 16:12 98.2 F 96 18 150/85 95 Intake and Output 10/19/17 10/20/17 10/20/17 22:59 06:59 14:59 Other: Weight 59.421 kg Constitutional: No acute distress, conversant, pleasant Eyes: Anicteric sclerae, moist conjunctiva, no lid-lag Pupils equal round reactive to light ENMT: NC/AT Oropharynx clear, no erythema, or exudates Neck: Supple, FROM, no masses, or JVD No carotid bruits No thyromegaly Lungs: Clear to auscultation Clear to percussion Normal respiratory effort, no accessory muscle use Cardiovascular: Heart regular in rate and rhythm, No murmurs, gallops, or rubs No peripheral edema Abdominal: Soft Nontender, no guarding, rebound or rigidity Abdomen moving with respiration Normoactive bowel sounds No hepatomegaly, No splenomegaly No palpable mass No abdominal wall hernia noted Skin: Normal temperature, tone, texture, turgor No induration No subcutaneous nodules No rash, lesions No ulcers Extremities: No digital cyanosis No clubbing Pedal pulses intact and symmetrical Radial pulses intact and symmetrical No calf tenderness Psychiatric: Alert and oriented to person, place Depressed affect poor judgment Neuro Muscles Strength 5/5 in all 4 extremities Sensation to light touch grossly present throughout No focal sensory deficits Lymphatics: no palpable cervical or supraclavicular , or inguinal lymph nodes Cranial Nerve Examination - Cranial Nerves Cranial Nerve II- Optic: Intact Cranial Nerve III- Oculomotor: Intact Cranial Nerve IV- Trochlear: Intact Cranial Nerve V- Trigeminal: Intact Cranial Nerve - Abducens: Intact Cranial Nerve VII- Facial: Intact Cranial Nerve VIII- Auditory: Intact Cranial Nerve IX- Glossopharyngeal: Intact Cranial Nerve X- Vagus: Intact Cranial Nerve XI- Accessory: Intact Cranial Nerve XII- Hypoglossal: Intact Assessment and Plan Assessment: 27-year-old male with history of schizophrenia brought to the hospital for suicidal and homicidal ideation he currently denies. Patient has been on a binge drinking for the past 3-4 days. Medicine consulted for medical management Plan: #Suicidal ideation #Schizophrenia Management per psych #Alcohol abuse Monitor for alcohol withdrawal Thiamine and folic acid offered Benzos for any symptoms of withdrawal #Patient low risk for DVT as he is ambulatory Follow-up labs Thank you for allowing us to participate in the care of this patient. We will follow peripherally. Do not hesitate to contact us with questions. Someone can be reached from the [facility] hospitalist group at all hours of the day at [phone].
[2017-10-20] MEDS: NICOTINE 14MG/24HR PATCH TRANSDERM SCH (09:01)
[2017-10-20 09:28] LABS: Basophils % (A) 1 %; Eosinophils # (A) 0.1 k/uL (0-0.7); Eosinophils % (A) 1 %; HCT 49.8 % (39.0-53.0); HGB 16.8 gm/dL (13.0-17.5); Lymphocytes % (A) 43 %; MCH 29.5 pg (25.0-35.0); MCHC 33.7 g/dL (31.0-37.0); MCV 87.7 fL (80.0-100.0); Mean Platelet Volume 8.8; Monocytes # (A) 0.3 k/uL (0-1.0); Monocytes % (A) 6 %; Neutrophils # (A) 2.2 k/uL (1.3-7.7); Neutrophils % (A) 47 %; Platelet Count 209 k/uL (150-450); RBC 5.68 m/uL (4.30-5.90); RDW 12.2 % (11.5-15.5); WBC 4.6 k/uL (3.8-10.6)
[2017-10-20 09:44] LABS: ALT 17 U/L (21-72); AST 24 U/L (17-59); Albumin 4.3 g/dL (3.5-5.0); Alkaline Phosphatase 49 U/L (38-126); Anion Gap 13 mmol/L; Blood Urea Nitrogen 15 mg/dL (9-20); Calcium 9.8 mg/dL (8.4-10.2); Carbon Dioxide 27 mmol/L (22-30); Chloride 101 mmol/L (98-107); Glucose 114 mg/dL (74-99); Potassium 4.7 mmol/L (3.5-5.1); Sodium 141 mmol/L (137-145); Total Protein 7.3 g/dL (6.3-8.2)
--- NOTE | 2017-10-20 10:00 | P.HP ---
Psychiatric H&P - . H&P Date: 10/20/17 History & Physical: Allergies Allergy/AdvReac Type Severity Reaction Status Date / Time No Known Allergies Allergy Verified 10/19/17 18:18 Vital Signs Temp 98.3 F 10/20/17 06:58 Pulse 69 10/20/17 06:58 Resp 16 10/20/17 06:58 BP 125/59 10/20/17 06:58 Pulse Ox 98 10/19/17 19:32 Intake & Output 10/19/17 10/20/17 10/20/17 18:59 06:59 18:59 Weight 61.689 kg 59.421 kg Laboratory Last Values WBC 4.6 k/uL (3.8-10.6) 10/20/17 08:56 RBC 5.68 m/uL (4.30-5.90) 10/20/17 08:56 Hgb 16.8 gm/dL (13.0-17.5) 10/20/17 08:56 Hct 49.8 % (39.0-53.0) 10/20/17 08:56 MCV 87.7 fL (80.0-100.0) 10/20/17 08:56 MCH 29.5 pg (25.0-35.0) 10/20/17 08:56 MCHC 33.7 g/dL (31.0-37.0) 10/20/17 08:56 RDW 12.2 % (11.5-15.5) 10/20/17 08:56 Plt Count 209 k/uL (150-450) 10/20/17 08:56 Neutrophils % 47 % 10/20/17 08:56 Lymphocytes % 43 % 10/20/17 08:56 Monocytes % 6 % 10/20/17 08:56 Eosinophils % 1 % 10/20/17 08:56 Basophils % 1 % 10/20/17 08:56 Neutrophils # 2.2 k/uL (1.3-7.7) 10/20/17 08:56 Lymphocytes # 2.0 k/uL (1.0-4.8) 10/20/17 08:56 Monocytes # 0.3 k/uL (0-1.0) 10/20/17 08:56 Eosinophils # 0.1 k/uL (0-0.7) 10/20/17 08:56 Basophils # 0.0 k/uL (0-0.2) 10/20/17 08:56 Urine Opiates Screen Not Detected (NotDetected) 10/19/17 16:50 Ur Oxycodone Screen Not Detected (NotDetected) 10/19/17 16:50 Urine Methadone Screen Not Detected (NotDetected) 10/19/17 16:50 Ur Propoxyphene Screen Not Detected (NotDetected) 10/19/17 16:50 Ur Barbiturates Screen Not Detected (NotDetected) 10/19/17 16:50 U Tricyclic Antidepress Not Detected (NotDetected) 10/19/17 16:50 Ur Phencyclidine Scrn Not Detected (NotDetected) 10/19/17 16:50 Ur Amphetamines Screen Not Detected (NotDetected) 10/19/17 16:50 U Methamphetamines Scrn Not Detected (NotDetected) 10/19/17 16:50 U Benzodiazepines Scrn Not Detected (NotDetected) 10/19/17 16:50 Urine Cocaine Screen Not Detected (NotDetected) 10/19/17 16:50 U Marijuana (THC) Screen Not Detected (NotDetected) 10/19/17 16:50 10/20/17 09:43 Identification: Apolinar Reynolds is a 27 years old single white male living in [facility]. He was [facility] to [facility] on 10/19/2017 under a petition stating that he is suicidal. History of present illness: Patient said he has been having suicidal thoughts for 1 day when he was drinking and he does not have it anymore. He said he was having homicidal thoughts towards a man who was saying bad things while intoxicated about his girlfriend. Again he denies any such thoughts now. He said his son on 06/19/2016 at the age of 4 months from some congenital heart problems. Since then patient reports that he has been getting the desired to drink and also having mood changes. He said the mood changes include getting aggravated easily crying easily and he manages these problems by going for walks and gets over it. He denies hallucinations and delusional thinking. Patient reports of an extensive history of self abusive behavior including cutting himself overdosing once and hitting his head against the window while he was in the hospital in [place]. He said he does not cut himself anymore. Previous psychiatric history/drug and alcohol abuse: He said he was in psychiatric hospitals about 15 times. He said he was going to [facility] in the past, was on Depakote and the psychiatrist discontinued Depakote for reasons that are not quite clear. He also said he was discharged from [facility] since they don't treat him for retardation. Obviously the patient is not a good historian. He said he has been drinking alcohol for the last 2 years here and there about one or 2 beers at times. However for the last 4 days he has been drinking about a pint of liquor a day. He denies having had any blackouts withdrawal symptoms DUIs PIs or fights/losing her job because of drinking. He denies abusing drugs. His UDS is negative. I don't see the results of blood alcohol level in the chart. Previous medical history: He is not ALLERGIC to any medication. He denies any major physical problems. He did not have any surgery. Social history: He said he quit the school in 11th grade since he was suspended multiple times for throwing milk cartons at the school, getting into arguments with teachers, throwing temper tantrums, cutting classes etc. He said he was going to his friend's house and played video games when he cut classes. He was expelled from school in 11th grade since he took a fish filet knife to the school. He said he went to a trade school after this in 12th grade to get his required credit for graduation. But he did not graduate from high school. He said he had repeated third and fourth grades in school. He was raised well by his mother and his parents were when he was too young to know anything. Currently he lives with his mother. He does not have any job for the last 3 months. 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 He was fired for reasons that is not clear. His longest held job was for 3 months last year which he quit. He has [email or web address] health insurance. He was not in the service. He is [place] and does not go to spiritism. He is heterosexual and does not have a girlfriend at this time. He denies any pending legal issues. Family history: He denies any history of psychiatric or general medical problems in the family. Mental status examination: This is a white ambulatory male who looks rather unkempt with untrimmed mustache galeana and uncombed hair. He is polite and cooperative. His speech is spontaneous relevant and goal-directed. But he is not able to provide good information. His mood is euthymic to cheerful and affect is appropriate to the thought content. He denies hallucinations and delusional thinking. He denies current suicide and homicide thoughts. He said he wants help with his alcoholism. He is well oriented. He is able to recall 3 out of 3 items after 5 minutes. He is able to name only the last 2 presidents when he was asked to name the last 4. He is able to spell house both forwards and backwards correctly. He is able to say 8+7 is 15 and said 8 7 is 62. His insight is fair to poor and judgment is impaired as evidenced by recent alcohol intoxication and making suicide or homicide statements. Diagnostic impression: Unspecified bipolar and related disorder F 31.9. Alcohol use disorder severe F 10.20. Borderline personality disorder F 60.3. NKDA. Treatment plan: He already had his physical examination. He will have psychosocial evaluation. He will receive milieu therapy group therapy individual therapy occupational therapy recreational therapy and medication education. His condition was discussed with him and it was agreed to restart him on Depakote since he had taken it before and apparently it had helped him. link trainer maintenance worker will refer him to alcohol rehab program. Discharge with outpatient follow-up. Treatment goals: He will continue to be free of suicide and homicide thoughts. He will learn better coping skills. His mood will be stable. He will continue to be free of self abusive behavior. Estimated length of stay: 3-5 days.
[2017-10-20] MEDS ORDERED: INFLUENZA VACCINE (6 MOS+) 60 MCG/0.5 ML SYRINGE IM ONE (10:03)
[2017-10-20] MEDS: DIVALPROEX 500 MG TABLET.DR PO SCH ×2 (10:04→21:26)
[2017-10-20] MEDS ORDERED: PNEUMOCOCCAL VACC-PNEUMOVAX 23 25 MCG/0.5 ML VIAL IM ONE (10:07)
[2017-10-20 11:19] LABS: Appearance,Urine Clear (Clear); Bilirubin,Urine Negative (Negative); Blood,Urine Negative (Negative); Color,Urine Yellow; Glucose,Urine (UA) Negative (Negative); Ketones,Urine Negative (Negative); Leukocyte Esterase,Urine Negative (Negative); Nitrite,Urine Negative (Negative); Protein,Urine Negative (Negative); Specific Gravity,Urine 1.015 (1.001-1.035)
[2017-10-20] MEDS: THIAMINE 100 MG TAB PO SCH (12:30)
[2017-10-20] MEDS: FOLIC ACID 1 MG TAB PO SCH (12:30)
[2017-10-20] MEDS: LORazepam 1 MG TAB PO PRN (17:05)
[2017-10-21 06:52] VITALS: BP 125/68; RESP 18; TEMP 98.7
[2017-10-21] MEDS: NICOTINE 14MG/24HR PATCH TRANSDERM SCH (08:21)
[2017-10-21] MEDS: DIVALPROEX 500 MG TABLET.DR PO SCH ×2 (08:21→20:33)
[2017-10-21] MEDS: LORazepam 1 MG TAB PO PRN ×3 (09:18→23:17)
--- NOTE | 2017-10-21 10:22 | P.PN ---
Progress Note - Text Progress Note Date: 10/21/17 Patient was seen for routine follow-up examination. He has been taking his medication, attends groups, socializes with peers and interacts with staff. He said he feels better on current dose of Depakote, slept well last night, does not feel sleepy during daytime and his mood is better also. He continues to deny suicide and homicide thoughts. This is a white ambulatory male with adequate hygiene. But he looks somewhat unkempt. He does not show any psychomotor agitation or retardation. His speech is spontaneous relevant and goal-directed. His mood is euthymic to cheerful and affect is appropriate to the thought content. He denies hallucinations, delusional thinking, suicidal and homicidal ideas. He is well oriented with adequate memory concentration general knowledge etc. Plan: Continue Depakote 500 mg twice a day, groups and other therapies.
[2017-10-21] MEDS: ACETAMINOPHEN TAB 325 MG TAB PO PRN ×2 (10:37→20:33)
[2017-10-21] MEDS: FOLIC ACID 1 MG TAB PO SCH (11:54)
[2017-10-21] MEDS: THIAMINE 100 MG TAB PO SCH (11:54)
[2017-10-22] MEDS: NICOTINE 14MG/24HR PATCH TRANSDERM SCH (08:52)
[2017-10-22] MEDS: DIVALPROEX 500 MG TABLET.DR PO SCH (08:53)
[2017-10-22] MEDS: LORazepam 1 MG TAB PO PRN (08:54)
[2017-10-22] MEDS: FOLIC ACID 1 MG TAB PO SCH (11:44)
[2017-10-22] MEDS: THIAMINE 100 MG TAB PO SCH (11:44)
[2017-10-22 13:45] VITALS: BMI 17.7
--- NOTE | 2017-10-22 14:49 | P.DS ---
Providers Date of admission: 10/19/17 19:04 Expected date of discharge: 10/22/17 Attending physician: Modesto Ham Consults: 10/19/17 19:11 Consult Physician Routine Consulting Provider: Cindi Cuba Consult Reason/Comments: Medical Management Do you want consulting provider notified?: Yes Primary care physician: Stated None Hospital Course: Patient had his psychiatric evaluation, physical examination and psychosocial evaluation. After psychiatric examination it was agreed for him to try Depakote 500 mg twice a day for mood stabilization along with vitamins regarding his alcohol use. He took these medications without any adverse effects. He attended groups and other therapies, interacted with staff and peers regularly. His mood improved and he became free of suicide thoughts. He also agreed to take his medications seek rehab, had family meeting and it was agreed to discharge him. Condition on discharge: This is a white ambulatory male with adequate hygiene. But he still looks somewhat unkempt. Poorly combed hair and untrimmed mustache and galeana. He does not show any psychomotor agitation or retardation. His speech is spontaneous relevant and goal-directed. His mood is euthymic and affect is appropriate. He continues to deny suicide and homicide thoughts. He denies hallucinations and delusional thinking. He is well oriented with good memory concentration general fund of knowledge etc. His insight and judgment have improved quite a bit. Diagnosis on discharge: Unspecified bipolar and related disorder F 31.9. Alcohol use disorder severe F 10.20. Borderline personality disorder F 60.3. NKDA. Patient was advised and agreed to take his medications as prescribed, not to drink alcohol or use drugs, to learn better coping skills throughout therapy, to seek alcohol rehab, not to drive or operate missionary if he feels sleepy, to get Depakote level, CBC with differential, AST and ALT 10 hours after taking last dose of Depakote next week, to call his psychiatrist or therapist if he develops any suicidal thoughts and if he cannot get hold of them to go to the nearest ER. Patient Condition at Discharge: Stable Plan - Discharge Summary Discharge Rx Participant: No New Discharge Prescriptions: New Divalproex [Depakote] 500 mg PO BID 30 Days #60 tablet. Folic Acid 1 mg PO DAILY@1200 30 Days #30 tab Thiamine [Vitamin B-1] 100 mg PO DAILY@1200 30 Days #30 tab Discharge Medication List Divalproex [Depakote] 500 mg PO BID 30 Days #60 tablet. 10/22/17 [Rx] Folic Acid 1 mg PO DAILY@1200 30 Days #30 tab 10/22/17 [Rx] Thiamine [Vitamin B-1] 100 mg PO DAILY@1200 30 Days #30 tab 10/22/17 [Rx] Follow up Appointment(s)/Referral(s): [facility] [Outside] - 3 Days (Walk-in Intake at [facility] (10/23) or Friday (10/24) between 8:30 a.m and 3pm) None,Stated [Primary Care Provider] - 1-2 days Activity/Diet/Wound Care/Special Instructions: Activity and diet as tolerated. Avoid the use of street drugs and alcohol. Remove all firearms from the home. Take all medications as prescribed. Follow up with your Primary Care Physician in one to two days. When you are in need of refills on your medications please contact your medical provider and/or your outpatient psychiatrist to have this done. Please go to the scheduled outpatient appointment for aftercare. If symptoms return or become worse call the crisis line and/ or go the nearest emergency room for an evaluation
== END 2017-10-22 15:01 | disposition home or self-care (01) | DRG 885 ==
LOC: EC 16:03 → 3MHU 19:04
PROVIDERS: ADMIT Psychiatry & Neurology Psychiatry; ATTEND Psychiatry & Neurology Psychiatry
DX: F31.9 Bipolar disorder, unspecified (principal); R45.851 Suicidal ideations; F10.20 Alcohol dependence, uncomplicated; F60.3 Borderline personality disorder; R45.850 Homicidal ideations; F17.200 Nicotine dependence, unspecified, uncomplicated; F90.9 Attention-deficit hyperactivity disorder, unspecified type; F20.9 Schizophrenia, unspecified; Z86.69 Personal history of other diseases of the nervous system and sense organs; Z86.14 Personal history of Methicillin resistant Staphylococcus aureus infection
CPT/HCPCS: 80053; 80306; 81003; 82075; 84443; 85025; 90686; 90732; 99285

== ENCOUNTER 2018-01-23 02:43 | Emergency (ER) | payer OTHER ==
[2018-01-23] MEDS ORDERED: DIPH,PERTUS(ACELL)TETVAC-LF 0.5 ML VIAL IM ONE (02:54)
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
[2018-01-23 02:57] LABS: Glucose,Whole Blood 94 mg/dL (75-99)
[2018-01-23 03:00] VITALS: PULSE 75
[2018-01-23 03:26] LABS: Basophils # (A) 0.1 k/uL (0-0.2); Basophils % (A) 1 %; Eosinophils # (A) 0.2 k/uL (0-0.7); Eosinophils % (A) 2 %; HCT 44.4 % (39.0-53.0); HGB 14.7 gm/dL (13.0-17.5); Lymphocytes # (A) 3.6 k/uL (1.0-4.8); Lymphocytes % (A) 40 %; MCH 29.1 pg (25.0-35.0); MCHC 33.2 g/dL (31.0-37.0); MCV 87.7 fL (80.0-100.0); Mean Platelet Volume 7.8; Monocytes # (A) 0.5 k/uL (0-1.0); Monocytes % (A) 5 %; Neutrophils # (A) 4.5 k/uL (1.3-7.7); Neutrophils % (A) 50 %; Platelet Count 249 k/uL (150-450); RBC 5.06 m/uL (4.30-5.90); RDW 12.4 % (11.5-15.5)
[2018-01-23 03:38] LABS: Anion Gap 12 mmol/L; Blood Urea Nitrogen 14 mg/dL (9-20); Calcium 9.3 mg/dL (8.4-10.2); Carbon Dioxide 20 mmol/L (22-30); Chloride 106 mmol/L (98-107); Glucose 94 mg/dL (74-99); Potassium 4.1 mmol/L (3.5-5.1); Sodium 138 mmol/L (137-145)
[2018-01-23 03:41] LABS: Alcohol 104 mg/dL
[2018-01-23 04:08] LABS: Amphetamine Screen,Urine Not Detected (NotDetected); Barbiturate Screen,Urine Not Detected (NotDetected); Benzodiazepines Screen,Urine Not Detected (NotDetected); Cocaine Screen,Urine Not Detected (NotDetected); Methadone Screen, Urine Not Detected (NotDetected); Opiate Screen,Urine Not Detected (NotDetected); Oxycodone Screen, Urine Not Detected (NotDetected); Phencyclidine Screen,Urine Not Detected (NotDetected); Tricyclic Antidepressant,Urine Not Detected (NotDetected); Urn Cannabinoid Scrn Not Detected (NotDetected)
[2018-01-23 05:27] VITALS: BP 105/63; RESP 16; TEMP 98.2
== END 2018-01-23 05:20 | disposition home or self-care (01) ==
LOC: EC 02:43
DX: F32.9 Major depressive disorder, single episode, unspecified (principal); S51.812A Laceration without foreign body of left forearm, initial encounter; F10.129 Alcohol abuse with intoxication, unspecified; F17.200 Nicotine dependence, unspecified, uncomplicated; Z23 Encounter for immunization; X78.9XXA Intentional self-harm by unspecified sharp object, initial encounter; Y90.5 Blood alcohol level of 100-119 mg/100 ml
CPT/HCPCS: 36415; 80048; 80306; 80320; 82075; 85025; 90471; 90715; 93005; 99285

== ENCOUNTER 2018-05-10 03:55 | Emergency (ER) | payer OTHER ==
[2018-05-10 04:00] VITALS: BP 158/110; PULSE 91; RESP 16; TEMP 98.2
--- NOTE | 2018-05-10 04:02 | ED ---
ENT HPI - General Chief complaint: Dental/Oral Stated complaint: Dental Pain Time Seen by Provider: 05/10/18 04:01 Source: patient Mode of arrival: EMS Limitations: no limitations - History of Present Illness Initial comments: Patient is a 27-year-old male with a history of bipolar and multiple dental caries with infection who presents to the emergency department today via EMS for evaluation of tooth pain. Patient reports that he has a fractured tooth, it 's been causing him pain. He did take some penicillin he had left over from previous tooth infections as well as Tylenol 3 with minimal improvement in the pain. He does have a appointment to follow up with his dentist on Friday. He reports that he has constant pain in that tooth worse with eating or drinking. He denies any associated symptoms including fevers, chills, nausea, vomiting. - Related Data Previous Rx's Medication Instructions Recorded Divalproex [Depakote] 500 mg PO BID 30 Days #60 tablet. 10/22/17 Folic Acid 1 mg PO DAILY@1200 30 Days #30 tab 10/22/17 Thiamine [Vitamin B-1] 100 mg PO DAILY@1200 30 Days #30 10/22/17 tab Allergies Allergy/AdvReac Type Severity Reaction Status Date / Time No Known Allergies Allergy Verified 05/10/18 04:00 Review of Systems ROS Statement: Those systems with pertinent positive or pertinent negative responses have been documented in the HPI. ROS Other: All systems not noted in ROS Statement are negative. Past Medical History Past Medical History: No Reported History Additional Past Medical History / Comment(s): MIGRAINE History of Any Multi-Drug Resistant Organisms: MRSA Date of last positivie culture/infection: 2005 MDRO Source:: buttocks Past Surgical History: No Surgical Hx Reported Past Psychological History: ADD/ADHD, Bipolar, Depression Smoking Status: Current every day smoker Past Alcohol Use History: Daily Past Drug Use History: None Reported - Past Family History Family Additional Family Medical History / Comment(s): Mother with cancer however patient is not aware which type General Exam - General Exam Comments Initial Comments: Physical Exam GENERAL: Patient is well-developed and well-nourished. Patient is nontoxic and well-hydrated and is in no distress. Patient is anxious, pacing around the room HENT: Normocephalic, Atraumatic. Poor dentition, multiple caries, multiple teeth have been surgically removed. Tooth #11 is fractured or has a very advanced caries. There is minimal periapical erythema EYES: PERRL, EOMI PULMONARY: Unlabored respirations. No audible rales rhonchi or wheezing was noted. CARDIOVASCULAR: There is a regular rate and rhythm without any murmurs gallops or rubs. ABDOMEN: Soft and nontender with normal bowel sounds. SKIN: Skin is clear with no lesions or rashes and otherwise unremarkable. : Deferred NEUROLOGIC: Patient is alert and oriented x3. Moving all extremities spontaneously MUSCULOSKELETAL: Normal extremities with adequate strength and full range of motion. No lower extremity swelling or edema. No calf tenderness. PSYCHIATRIC: anxious but appropriate Limitations: no limitations Limitations: no limitations Course Vital Signs 05/10/18 03:57 Temperature 98.2 F Pulse Rate 91 Respiratory 16 Rate Blood Pressure 158/110 O2 Sat by Pulse 98 Oximetry Medical Decision Making - Medical Decision Making The patient was seen and evaluated A medical screening exam was performed, patient was in no acute distress with no apparent emergent medical condition We waited 3 hours to obtain consent for treatment from the patient's guardian, guardian was not able to be reached. At this time the patient is been screened for any acute emergencies, there is no emergent medical conditions identified and no need for intervention. I discussed with the patient that at this time I do not have consent to treat him therefore he will be discharged home, he can return to the emergency department for reevaluation when his guardian can consent for his care or if he is concerned that his develops any medical emergency. I advised the patient to continue treating his tooth pain symptomatically with warm water washes Tylenol and Motrin. Patient was agreeable to this plan. Disposition Clinical Impression: Fracture of tooth Disposition: HOME SELF-CARE Instructions: Dental Caries (ED), Toothache (ED) Is patient prescribed a controlled substance at d/c from ED?: No Referrals: None,Stated [Primary Care Provider] - 1-2 days
== END 2018-05-10 07:07 | disposition home or self-care (01) ==
LOC: EC 03:55
DX: S02.5XXA Fracture of tooth (traumatic), initial encounter for closed fracture (principal); F41.9 Anxiety disorder, unspecified; F17.200 Nicotine dependence, unspecified, uncomplicated; Z86.14 Personal history of Methicillin resistant Staphylococcus aureus infection
CPT/HCPCS: 99283

== ENCOUNTER 2018-07-22 20:02 | Emergency (ER) | payer OTHER ==
[2018-07-22 20:08] VITALS: RESP 18
[2018-07-22] MEDS ORDERED: IBUPROFEN 600 MG TAB PO STA (21:16)
[2018-07-22] MEDS ORDERED: SODIUM CHLORIDE 0.9% 1,000 ML IV STA ×2 (21:16→22:14)
[2018-07-22 21:58] LABS: ALT 30 U/L (21-72); AST 30 U/L (17-59); Albumin 4.1 g/dL (3.5-5.0); Alkaline Phosphatase 41 U/L (38-126); Anion Gap 8 mmol/L; Blood Urea Nitrogen 13 mg/dL (9-20); Calcium 9.6 mg/dL (8.4-10.2); Carbon Dioxide 27 mmol/L (22-30); Chloride 103 mmol/L (98-107); Glucose 91 mg/dL (74-99); Potassium 4.3 mmol/L (3.5-5.1); Sodium 138 mmol/L (137-145); Total Bilirubin 0.7 mg/dL (0.2-1.3); Total Protein 7.3 g/dL (6.3-8.2)
--- NOTE | 2018-07-22 21:59 | XR ---
EXAMINATION: XR chest 2V DATE AND TIME: 07/22/2018 9:27 PM CLINICAL INDICATION: PHH; cough TECHNIQUE: Departmental protocol COMPARISON: 12/12/2014 FINDINGS: The lungs are clear. The pleural spaces are negative. The cardiac silhouette is not enlarged. The remainder of the mediastinal silhouette is unremarkable. The skeletal structures and soft tissues are negative for acute findings. IMPRESSION: NO ACUTE PROCESS.
--- NOTE | 2018-07-22 22:04 | ED ---
General Adult HPI - General Chief complaint: Fever Stated complaint: Fever Time Seen by Provider: 07/22/18 21:08 Source: patient Mode of arrival: ambulatory Limitations: no limitations - History of Present Illness Initial comments: 27-year-old male patient past medical history of psychiatric disorder, presents to ED with approximately 3 days of fever/chills, dry cough, nausea without emesis. Patient states that he had some intermittent twinges of chest pain located in his right pectoral region. Patient is also has some twinges of chest pain and left pectoral region. Patient states that these are intermittent sharp stabbing pains lasting a few seconds. Patient states that he experienced the chest pain at rest, it is not associated with exertion. Pt denies all other complaints. Pt denies pleuritic chest pain, shortness of breath. Pt denies abdomial pain. Systemic: Pt denies rash. Pt denies weakness, night sweats, weight loss. Neuro: Pt denies headache, visual disturbances, syncope or pre-syncope. HEENT: Pt denies ocular discharge or irritation, otalgia, rhinorrhea, pharyngitis or notable lymphadenopathy. Cardiopulmonary: Pt denies SOB, heart palpitations, dyspnea on exertion. Abdominal/GI: Pt denies abdominal pain, v/d. : Pt denies dysuria, burning w/ urination, frequency/urgency. Denies new onset urinary or bowel incontinence. MSK: Pt denies myalgia, loss of strength or function in extremities. Neuro: Pt denies new onset weakness, paresthesias. - Related Data Home Medications Medication Instructions Recorded Confirmed Acetaminophen Tab [Tylenol] 1,000 mg PO Q4H 07/22/18 07/22/18 Allergies Allergy/AdvReac Type Severity Reaction Status Date / Time No Known Allergies Allergy Verified 07/22/18 21:20 Review of Systems ROS Statement: Those systems with pertinent positive or pertinent negative responses have been documented in the HPI. ROS Other: All systems not noted in ROS Statement are negative. Past Medical History Past Medical History: No Reported History Additional Past Medical History / Comment(s): MIGRAINE History of Any Multi-Drug Resistant Organisms: MRSA Date of last positivie culture/infection: 2005 MDRO Source:: buttocks Past Surgical History: No Surgical Hx Reported Past Psychological History: ADD/ADHD, Bipolar, Depression Smoking Status: Current every day smoker Past Alcohol Use History: Daily Past Drug Use History: None Reported - Past Family History Family Additional Family Medical History / Comment(s): Mother with cancer however patient is not aware which type General Exam - General Exam Comments Initial Comments: Constitutional: NAD, AOX3, Pt has pleasant affect. HEENT: NC/AT, trachea midline, neck supple, no lymphadenopathy. Posterior pharynx non erythematous, without exudates. External ears appear normal, without discharge. TM pale tello bilaterally, no bulging or perforation. Mucous membranes moist. Eyes PERRLA, EOM intact. There is no scleral icterus. No pallor noted. Cardiopulmonary: RRR, no murmurs, rubs or gallops, no JVD noted. Lungs CTAB in anterior and posterior givens. No peripheral edema. Abdominal exam: Abdomen soft and non-distended. Abdomen non-tender to palpation in all 4 quadrants. Bowel sounds active in LLQ. No hepatosplenomegaly. No ecchymosis Neuro: CN II-XII grossly intact. No nuchal rigidity. MSK: No posterior calf tenderness bilaterally, homans sign negative bilaterally. Posterior tibialis and radial pulse +2 bilaterally. Sensation intact in upper and lower extremities. Full active ROM in upper and lower extremities, 5/5 stregnth. Limitations: no limitations Course Vital Signs 07/22/18 07/22/18 07/22/18 20:06 21:01 23:55 Temperature 100.7 F H 98.9 F Pulse Rate 108 H 88 Respiratory 18 18 18 Rate Blood Pressure 141/95 119/78 O2 Sat by Pulse 98 98 Oximetry Medical Decision Making - Medical Decision Making 27-year-old male patient past medical history of psychiatric disorder, presents to ED with approximately 3 days of fever/chills, dry cough, nausea without emesis. Patient states that he had some intermittent twinges of chest pain located in his right pectoral region. Patient is also has some twinges of chest pain and left pectoral region. Patient states that these are intermittent sharp stabbing pains lasting a few seconds. Patient states that he experienced the chest pain at rest, it is not associated with exertion. Pt denies all other complaints. Pt denies pleuritic chest pain, shortness of breath. Pt denies abdomial pain. Pt initial vitals signs displayed 100.7F, HR of 108. PT administered antipyretic, VS 98.5F 84 BPM during evaluation. Physical exam did not display acute pathology. Laboratory investigations revealed non-impressive CBC, CMP. Amylase lipase within normal limits. Influenza negative. D-dimer mildly elevated at 1.19. Troponin negative. EKG not concerning for acute ischemia. CXR and chest CTA negative. Pt improved with ibuprofen, fluids. Patient diagnosed with viral syndrome. Pt to continue to tx fever as necessary, encourage fluids. Patient to follow with PCP 1-2 days for continued evaluation. Patient to return to ED if new signs symptoms develop or condition worsen in any way. Case discussed in depth with Dr. De Leon. - Lab Data Result diagrams: 07/22/18 21:35 07/22/18 21:35 Lab Results 07/22/18 07/22/18 07/22/18 Range/Units 20:10 21:35 21:35 WBC (3.8-10.6) k/uL RBC (4.30-5.90) m/uL Hgb (13.0-17.5) gm/dL Hct (39.0-53.0) % MCV (80.0-100.0) fL MCH (25.0-35.0) pg MCHC (31.0-37.0) g/dL RDW (11.5-15.5) % Plt Count (150-450) k/uL Neutrophils % % Lymphocytes % % Monocytes % % Eosinophils % % Basophils % % Neutrophils # (1.3-7.7) k/uL Lymphocytes # (1.0-4.8) k/uL Monocytes # (0-1.0) k/uL Eosinophils # (0-0.7) k/uL Basophils # (0-0.2) k/uL D-Dimer 1.19 H (<0.60) mg/L FEU Sodium (137-145) mmol/L Potassium (3.5-5.1) mmol/L Chloride (98-107) mmol/L Carbon Dioxide (22-30) mmol/L Anion Gap mmol/L BUN (9-20) mg/dL Creatinine (0.66-1.25) mg/dL Est GFR (CKD-EPI)AfAm (>60 ml/min/1.73 sqM) Est GFR (CKD-EPI)NonAf (>60 ml/min/1.73 sqM) Glucose (74-99) mg/dL Calcium (8.4-10.2) mg/dL Total Bilirubin (0.2-1.3) mg/dL AST (17-59) U/L ALT (21-72) U/L Alkaline Phosphatase (38-126) U/L Troponin I <0.012 (0.000-0.034) ng/mL Total Protein (6.3-8.2) g/dL Albumin (3.5-5.0) g/dL Amylase (30-110) U/L Lipase (23-300) U/L Influenza Type A RNA Not Detected (Not Detectd) Influenza Type B (PCR) Not Detected (Not Detectd) 07/22/18 07/22/18 07/22/18 Range/Units 21:35 21:35 22:02 WBC 3.4 L (3.8-10.6) k/uL RBC 5.45 (4.30-5.90) m/uL Hgb 15.8 (13.0-17.5) gm/dL Hct 47.4 (39.0-53.0) % MCV 86.9 (80.0-100.0) fL MCH 28.9 (25.0-35.0) pg MCHC 33.3 (31.0-37.0) g/dL RDW 11.8 (11.5-15.5) % Plt Count 178 (150-450) k/uL Neutrophils % 48 % Lymphocytes % 37 % Monocytes % 11 % Eosinophils % 1 % Basophils % 1 % Neutrophils # 1.6 (1.3-7.7) k/uL Lymphocytes # 1.3 (1.0-4.8) k/uL Monocytes # 0.4 (0-1.0) k/uL Eosinophils # 0.1 (0-0.7) k/uL Basophils # 0.0 (0-0.2) k/uL D-Dimer (<0.60) mg/L FEU Sodium 138 (137-145) mmol/L Potassium 4.3 (3.5-5.1) mmol/L Chloride 103 (98-107) mmol/L Carbon Dioxide 27 (22-30) mmol/L Anion Gap 8 mmol/L BUN 13 (9-20) mg/dL Creatinine 0.78 (0.66-1.25) mg/dL Est GFR (CKD-EPI)AfAm >90 (>60 ml/min/1.73 sqM) Est GFR (CKD-EPI)NonAf >90 (>60 ml/min/1.73 sqM) Glucose 91 (74-99) mg/dL Calcium 9.6 (8.4-10.2) mg/dL Total Bilirubin 0.7 (0.2-1.3) mg/dL AST 30 (17-59) U/L ALT 30 (21-72) U/L Alkaline Phosphatase 41 (38-126) U/L Troponin I (0.000-0.034) ng/mL Total Protein 7.3 (6.3-8.2) g/dL Albumin 4.1 (3.5-5.0) g/dL Amylase 77 (30-110) U/L Lipase 76 (23-300) U/L Influenza Type A RNA (Not Detectd) Influenza Type B (PCR) (Not Detectd) - EKG Data -: EKG Interpreted by Me EKG Comments: Ventricular rate 83, patient follow 148, QRS 90, QT/QTC 338/397. Normal sinus rhythm, no concerns for acute ischemia. Disposition Clinical Impression: Viral illness Disposition: HOME SELF-CARE Condition: Stable Instructions (If sedation given, give patient instructions): Fever in Adults ( ED) Additional Instructions: Patient to adhere to previously discussed treatment plan and will take medication(s) as directed. Patient to follow up with PCP in 1-2 days. Patient to return to ED if symptoms do not improve. Is patient prescribed a controlled substance at d/c from ED?: No Referrals: None,Stated [Primary Care Provider] - 1-2 days Time of Disposition: 23:13
[2018-07-22 22:07] LABS: Basophils % (A) 1 %; Eosinophils # (A) 0.1 k/uL (0-0.7); Eosinophils % (A) 1 %; HCT 47.4 % (39.0-53.0); HGB 15.8 gm/dL (13.0-17.5); Lymphocytes # (A) 1.3 k/uL (1.0-4.8); Lymphocytes % (A) 37 %; MCH 28.9 pg (25.0-35.0); MCHC 33.3 g/dL (31.0-37.0); MCV 86.9 fL (80.0-100.0); Mean Platelet Volume 7.5; Monocytes # (A) 0.4 k/uL (0-1.0); Monocytes % (A) 11 %; Neutrophils # (A) 1.6 k/uL (1.3-7.7); Neutrophils % (A) 48 %; Platelet Count 178 k/uL (150-450); RBC 5.45 m/uL (4.30-5.90); RDW 11.8 % (11.5-15.5); WBC 3.4 k/uL (3.8-10.6)
[2018-07-22 22:45] LABS: Amylase 77 U/L (30-110); Lipase 76 U/L (23-300)
--- NOTE | 2018-07-22 22:47 | CT ---
EXAMINATION TYPE: CT chest angio for PE DATE OF EXAM: 07/22/2018 COMPARISON: 05/17/2016 HISTORY: Fever and short of breath CT DLP: mGycm Automated exposure control for dose reduction was used. CONTRAST: CT Chest for pulmonary embolism performed with , patient injected with mL of . The contrast was Isovue 72 mL. There are 3-D post processed images. FINDINGS: Heart and mediastinum appear normal. There are no hilar masses. There is no mediastinal adenopathy. T here is no evidence of aortic aneurysm or dissection. There is normal contrast opacification of the pulmonary arteries. There are no filling defects. The lungs are clear of infiltrate. There is no evidence of a pulmonary mass. There is no pleural effu melissa. Upper abdominal soft tissues are unremarkable. The bony thorax is intact. There is no thoracic compression fracture. IMPRESSION: Normal exam. No evidence of pulmonary embolism.
[2018-07-22 23:57] VITALS: BP 119/78; PULSE 88; TEMP 98.9
== END 2018-07-22 23:57 | disposition home or self-care (01) ==
LOC: EC 20:02
DX: B34.9 Viral infection, unspecified (principal); R07.89 Other chest pain; R79.89 Other specified abnormal findings of blood chemistry; G43.909 Migraine, unspecified, not intractable, without status migrainosus; F17.200 Nicotine dependence, unspecified, uncomplicated; Z86.14 Personal history of Methicillin resistant Staphylococcus aureus infection; Z79.899 Other long term (current) drug therapy
CPT/HCPCS: 36415; 93005; 85379; 80053; 82150; 83690; 84484; 85025; 87502; 71046; 71275; 99284; 96360; 96361; Q9967

== ENCOUNTER 2018-09-14 00:35 | Emergency (ER) | payer OTHER ==
--- NOTE | 2018-09-14 02:49 | ED ---
General Adult HPI - General Chief complaint: Recheck/Abnormal Lab/Rx Stated complaint: Fever, Abdominal Pain Time Seen by Provider: 09/14/18 01:42 Source: patient Mode of arrival: ambulatory Limitations: no limitations - History of Present Illness Initial comments: 28-year-old male patient presents to the emergency department today for evaluation of lack of appetite and abdominal pain. Patient states that symptoms have been going on for months. When asked what change to bring him into the emergency department tonight, he states he was tired of not feeling any better. States he has lost 7 pounds over the last 3 months without trying. States he was seen and evaluated for similar symptoms in June was diagnosed with a virus. States he doesn't felt better since. He denies any new symptoms today. Denies any current nausea, vomiting, or abdominal pain. Denies any fevers or chills. States when the abdominal pain does come on its intermittently over the right side and flank. Denies any hematuria, dysuria, urinary urgency, urinary frequency with this. Denies any constipation or diarrhea. Patient denies any recent rash, shortness breath, chest pain, back pain, numbness, tingling, dizziness, weakness, headache, visual changes, or any other complaints. - Related Data Home Medications Medication Instructions Recorded Confirmed Acetaminophen Tab [Tylenol] 1,000 mg PO Q4H 07/22/18 07/22/18 Allergies Allergy/AdvReac Type Severity Reaction Status Date / Time No Known Allergies Allergy Verified 09/14/18 01:27 Review of Systems ROS Statement: Those systems with pertinent positive or pertinent negative responses have been documented in the HPI. ROS Other: All systems not noted in ROS Statement are negative. Past Medical History Past Medical History: No Reported History Additional Past Medical History / Comment(s): MIGRAINE, SPLINT PERSONALITY DISORDER History of Any Multi-Drug Resistant Organisms: MRSA Date of last positivie culture/infection: 2005 MDRO Source:: buttocks Past Surgical History: No Surgical Hx Reported Past Psychological History: ADD/ADHD, Bipolar, Depression Smoking Status: Current every day smoker Past Alcohol Use History: Daily Past Drug Use History: None Reported - Past Family History Family Additional Family Medical History / Comment(s): Mother with cancer however patient is not aware which type General Exam Limitations: no limitations General appearance: alert, in no apparent distress, other (Physical well- developed, thin appearing adult male patient in no acute distress. Vital signs upon presentation are temperature 98.4F, pulse 79, respirations 18, blood pressure 129/88, pulse ox 98% on room air.) Eye exam: Present: normal appearance, PERRL, EOMI. Absent: scleral icterus, conjunctival injection, periorbital swelling ENT exam: Present: normal exam, normal oropharynx, mucous membranes moist Respiratory exam: Present: normal lung sounds bilaterally. Absent: respiratory distress, wheezes, rales, rhonchi, stridor Cardiovascular Exam: Present: regular rate, normal rhythm, normal heart sounds. Absent: systolic murmur, diastolic murmur, rubs, gallop, clicks GI/Abdominal exam: Present: soft, normal bowel sounds. Absent: distended, tenderness, guarding, rebound, rigid Neurological exam: Present: alert, oriented X3, CN II-XII intact Psychiatric exam: Present: normal affect, normal mood Skin exam: Present: warm, dry, intact, normal color. Absent: rash Course Vital Signs 09/14/18 09/14/18 01:21 03:05 Temperature 98.4 F 98 F Pulse Rate 79 70 Respiratory 18 20 Rate Blood Pressure 129/88 121/59 O2 Sat by Pulse 98 97 Oximetry Medical Decision Making - Medical Decision Making 28-year-old male patient presented to the emergency department today for evaluation of abdominal pain and lack of appetite abdomen going on for months. Patient denies any current pain or symptoms. Physical examination is unremarkable. Abdomen is soft and nontender. Vital signs are within normal ranges. I did discuss with family and patient that he should follow-up with his primary care physician for further evaluation of these ongoing issues. Without any current symptoms or abnormal vitals is not felt that he requires further workup in the emergency department. Family was concerned about hypoglycemia, blood sugar at this time is 84. We did discuss management of hypoglycemia at home should this occur. He has recently established with the primary care physician, he is encouraged to follow-up as soon as possible for further evaluation. Return parameters were discussed in detail. He verbalizes understanding and agrees with this plan. - Lab Data Lab Results 09/14/18 Range/Units 03:00 POC Glucose (mg/dL) 84 (75-99) mg/dL POC Glu Director Of Accounts Payable ID Zachary Valdez Disposition Clinical Impression: Chronic abdominal pain, Anorexia Disposition: HOME SELF-CARE Condition: Good Instructions (If sedation given, give patient instructions): Abdominal Pain (ED) Additional Instructions: Increase fluids. Eat small frequent meals frequently throughout the day. Follow-up with her primary care physician as soon as possible for further evaluation of your chronic symptoms. Return to the emergency department immediately for any new, worsening, or concerning symptoms. Is patient prescribed a controlled substance at d/c from ED?: No Referrals: Karlos Mckeon MD [Primary Care Provider] - 1-2 days
[2018-09-14 03:02] LABS: Glucose,Whole Blood 84 mg/dL (75-99)
[2018-09-14 03:06] VITALS: BP 121/59; PULSE 70; RESP 20; TEMP 98
== END 2018-09-14 03:06 | disposition home or self-care (01) ==
LOC: EC 00:35
DX: R10.9 Unspecified abdominal pain (principal); G89.29 Other chronic pain; R63.0 Anorexia; F17.200 Nicotine dependence, unspecified, uncomplicated; Z86.14 Personal history of Methicillin resistant Staphylococcus aureus infection; Z79.899 Other long term (current) drug therapy
CPT/HCPCS: 36415; 99283

== ENCOUNTER 2018-11-22 23:31 | Emergency (ER) | payer OTHER ==
--- NOTE | 2018-11-23 00:19 | XR ---
EXAM: XR Left Foot Complete, 3 or More Views CLINICAL HISTORY: ITS.REASON XR Reason: Pain TECHNIQUE: Frontal, lateral and oblique views of the left foot. COMPARISON: No relevant prior studies available. FINDINGS: Bones/joints: Unremarkable. No acute fracture. No dislocation. Soft tissues: Unremarkable. No radiopaque foreign body. IMPRESSION: Normal left foot x-rays.
--- NOTE | 2018-11-23 00:25 | XR ---
EXAM: XR Left Ankle Complete, 3 or More Views CLINICAL HISTORY: ITS.REASON XR Reason: Pain TECHNIQUE: Frontal, lateral and oblique views of the left ankle. COMPARISON: No relevant prior studies available. FINDINGS: Bones/joints: Unremarkable. No acute fracture. No dislocation. Soft tissues: Unremarkable. IMPRESSION: Normal left ankle x-rays.
--- NOTE | 2018-11-23 00:47 | ED ---
General Adult HPI - General Source: patient, RN notes reviewed, old records reviewed Mode of arrival: ambulatory Limitations: no limitations <Parish Alonso - Last Filed: 11/23/18 01:20> <Windy Hendrickson - Last Filed: 11/23/18 07:27> - General Chief complaint: Extremity Injury, Lower Stated complaint: Foot Injury Time Seen by Provider: 11/22/18 23:45 - History of Present Illness Initial comments: 28-year-old male patient presents to ED with left foot injury. Patient was that he was playing basketball when he came down he had pain in the lateral aspect of his left foot. Patient has been able to bear weight but does have pain. She denies any other complaint. Patient denies any pain in ankle, tibia/fibula. Patient unable to bear weight. Patient denies any other complaints. Systemic: Pt denies fatigue, myalgia, fever/chills, rash. Pt denies weakness, night sweats, weight loss. Neuro: Pt denies headache, visual disturbances, syncope or pre-syncope. HEENT: Pt denies ocular discharge or irritation, otalgia, rhinorrhea, pharyngitis or notable lymphadenopathy. Cardiopulmonary: Pt denies chest pain, SOB, heart palpitations, dyspnea on exertion. Abdominal/GI: Pt denies abdominal pain, n/v/d. : Pt denies dysuria, burning w/ urination, frequency/urgency. Denies new onset urinary or bowel incontinence. MSK: Pt denies myalgia, loss of strength or function in extremities. Neuro: Pt denies new onset weakness, paresthesias. (Parish Alonso) - Related Data Home Medications Medication Instructions Recorded Confirmed Acetaminophen Tab [Tylenol] 1,000 mg PO Q4H 07/22/18 07/22/18 Allergies Allergy/AdvReac Type Severity Reaction Status Date / Time No Known Allergies Allergy Verified 11/22/18 23:42 Review of Systems ROS Other: All systems not noted in ROS Statement are negative. <Parish Alonso - Last Filed: 11/23/18 01:20> ROS Other: All systems not noted in ROS Statement are negative. <Windy Hendrickson - Last Filed: 11/23/18 07:27> ROS Statement: Those systems with pertinent positive or pertinent negative responses have been documented in the HPI. Past Medical History Past Medical History: No Reported History Additional Past Medical History / Comment(s): MIGRAINE, SPLINT PERSONALITY DIS ORDER History of Any Multi-Drug Resistant Organisms: MRSA Date of last positivie culture/infection: 2005 MDRO Source:: buttocks Past Surgical History: No Surgical Hx Reported Past Psychological History: ADD/ADHD, Bipolar, Depression Smoking Status: Current every day smoker Past Alcohol Use History: Daily Past Drug Use History: None Reported - Past Family History Family Additional Family Medical History / Comment(s): Mother with cancer however patient is not aware which type <Parish Alonso - Last Filed: 11/23/18 01:20> General Exam Limitations: no limitations <Parish Alonso - Last Filed: 11/23/18 01:20> - General Exam Comments Initial Comments: Constitutional: NAD, AOX3, Pt has pleasant affect. HEENT: NC/AT, trachea midline, neck supple, no lymphadenopathy. Posterior pharynx non erythematous, without exudates. External ears appear normal, without discharge. Mucous membranes moist. Eyes PERRLA, EOM intact. There is no scleral icterus. No pallor noted. Cardiopulmonary: RRR, no murmurs, rubs or gallops, no JVD noted. Lungs CTAB in anterior and posterior givens. No peripheral edema. Abdominal exam: Abdomen soft and non-distended. Abdomen non-tender to palpation in all 4 quadrants. Bowel sounds active in LLQ. No hepatosplenomegaly. No ecchymosis Neuro: CN II-XII grossly intact. No nuchal rigidity. MSK: Lateral aspect of left foot mildly tender to palpation. Patient able to wiggle toes. No ankle or tibia/fibula tenderness. No other areas of tenderness. Capillary refill less than 2 seconds. Patient not able to bear weight. Placed in posterior ankle splint. Patient neurovascularly intact after splint placement. No posterior calf tenderness bilaterally, homans sign negative bilaterally. Posterior tibialis and radial pulse +2 bilaterally. Sensation intact in upper and lower extremities. Full active ROM in upper and lower extremities, 5/5 stregnth. (Parish Alonso) Course Vital Signs 11/22/18 11/23/18 23:40 01:23 Temperature 98.7 F 98 F Pulse Rate 92 77 Respiratory 20 18 Rate Blood Pressure 120/73 123/77 O2 Sat by Pulse 97 97 Oximetry Medical Decision Making <Parish Alonso - Last Filed: 11/23/18 01:20> <Windy Hendrickson - Last Filed: 11/23/18 07:27> - Medical Decision Making 28-year-old male patient presents to ED with left foot injury. Patient was that he was playing basketball when he came down he had pain in the lateral aspect of his left foot. Patient has been able to bear weight but does have pain. She denies any other complaint. Patient denies any pain in ankle, tibia/fibula. Patient unable to bear weight. Patient denies any other complaints. Patient also in stable, afebrile. Physical exam displayed: Lateral aspect of left foot mildly tender to palpation. Patient able to wiggle toes. No ankle or tibia/fibula tenderness. No other areas of tenderness. Capillary refill less than 2 seconds. Patient not able to bear weight. Placed in posterior ankle splint. Patient neurovascularly intact after splint placement. Plain film of foot and ankle did not display any acute process. Patient discharged in posterior ankle splint. Patient will not bear weight and orthopedic follow-up. Patient to follow up with orthopedic consult 1-2 days. Patient return to ER if condition worsens in anyway. Case discussed with Dr. Hendrickson. (Parish Alonso) I was available for consultation in the emergency department. The history and physical exam were done by the midlevel provider. I was consulted for this patient's care. I reviewed the case with the midlevel provider and based on their presentation of the patient, I agree with the assessment, medical decision making and plan of care as documented. Chart was dictated using [employer] dictation software. Attempts were made to correct any dictation errors however some typographical errors may persist. (Windy Hendrickson) Disposition Is patient prescribed a controlled substance at d/c from ED?: No <Parish Alonso - Last Filed: 11/23/18 01:20> <Windy Hendrickson - Last Filed: 11/23/18 07:27> Clinical Impression: Foot sprain Disposition: HOME SELF-CARE Condition: Stable Instructions (If sedation given, give patient instructions): Foot Sprain (ED) Additional Instructions: Patient to adhere to previously discussed treatment plan and will take medication(s) as directed. Patient to follow up with PCP in 1-2 days. Patient to return to ED if symptoms do not improve. Follow-up with primary care provider in 1-2 days. Follow up with orthopedic consult 1-2 days. Do not bear weight on left ankle, use crutches. Referrals: Karlos Mckeon MD [Primary Care Provider] - 1-2 days Mauricio Mendoza DO [Medical Doctor] - 1-2 days
[2018-11-23 01:24] VITALS: BP 123/77; PULSE 77; RESP 18; TEMP 98
== END 2018-11-23 01:24 | disposition home or self-care (01) ==
LOC: EC 23:31
DX: S93.602A Unspecified sprain of left foot, initial encounter (principal); F17.200 Nicotine dependence, unspecified, uncomplicated; Z86.14 Personal history of Methicillin resistant Staphylococcus aureus infection; Z79.899 Other long term (current) drug therapy; X58.XXXA Exposure to other specified factors, initial encounter; Y93.67 Activity, basketball
CPT/HCPCS: 99284

== ENCOUNTER 2019-11-28 18:51 | Emergency (ER) | payer OTHER ==
[2019-11-28 19:28] LABS: Appearance,Urine Clear (Clear); Bilirubin,Urine Negative (Negative); Blood,Urine Negative (Negative); Color,Urine Yellow; Glucose,Urine (UA) Negative (Negative); Ketones,Urine Negative (Negative); Leukocyte Esterase,Urine Negative (Negative); Nitrite,Urine Negative (Negative); PH, Urine 5.5 (5.0-8.0); Protein,Urine Negative (Negative); Specific Gravity,Urine 1.024 (1.001-1.035); Urobilinogen,Urine <2.0 mg/dL (<2.0)
--- NOTE | 2019-11-28 19:33 | ED ---
Male Urogenital HPI - General Source: patient Mode of arrival: ambulatory Limitations: no limitations <Cori Wiseman - Last Filed: 11/28/19 20:50> <Kinjal Smith - Last Filed: 12/01/19 11:40> - General Chief complaint: Urogenital Stated complaint: Male Time Seen by Provider: 11/28/19 19:05 - History of Present Illness Initial comments: 29-year-old male presenting today for chief complaint of penile pain he states he feels like he has a lump on the penile shaft. Patient denies any discoloration redness he states that it feels like it is under the skin. Patient denies any urinary retention he states he has slight dysuria at times. Patient denies any penile discharge. Patient has no additional complaints denies fevers denies concern for sexual transmitted diseases. Remaining review of systems negative upon arrival patient appears well signs of acute distress we did receive permission by patient's guardian for treatment and care (Cori Wiseman) - Related Data Home Medications Medication Instructions Recorded Confirmed Acetaminophen Tab [Tylenol] 1,000 mg PO Q4H 07/22/18 07/22/18 Allergies Allergy/AdvReac Type Severity Reaction Status Date / Time No Known Allergies Allergy Verified 11/28/19 19:03 Review of Systems ROS Other: All systems not noted in ROS Statement are negative. <Cori Wiseman - Last Filed: 11/28/19 20:50> ROS Other: All systems not noted in ROS Statement are negative. <Kinjal Smith - Last Filed: 12/01/19 11:40> ROS Statement: Those systems with pertinent positive or pertinent negative responses have been documented in the HPI. Past Medical History Past Medical History: No Reported History Additional Past Medical History / Comment(s): MIGRAINE, SPLINT PERSONALITY DISORDER History of Any Multi-Drug Resistant Organisms: MRSA Date of last positivie culture/infection: 2005 MDRO Source:: buttocks Past Surgical History: No Surgical Hx Reported Past Psychological History: ADD/ADHD, Bipolar, Depression Smoking Status: Current every day smoker Past Alcohol Use History: Occasional Past Drug Use History: None Reported - Past Family History Family Additional Family Medical History / Comment(s): Mother with cancer however manuel huizar is not aware which type <Cori Wiseman - Last Filed: 11/28/19 20:50> General Exam Limitations: no limitations <IvoneCori Ann - Last Filed: 11/28/19 20:50> - General Exam Comments Initial Comments: General: The patient is awake and alert, in no distress Eye: +3 mm pupils are equal, round and reactive to light, extra-ocular movements are intact. No nystagmus. There is normal conjunctiva bilaterally. No signs of icterus. Gastrointestinal: Soft, non-distended, non-tender abdomen without masses or organomegaly noted. There is no rebound or guarding present : No penile external lesions no palpable lesion to deep palpation of shaft, no redness, no discharge, uncircumsized, foreskin retracted easily no redness of glans Musculoskeletal: Normal ROM, no tenderness. Strength 5/5. Sensation intact. Radial pulses equal bilaterally 2+. Neurological: A&O x 3. CN II-XII intact grossly, There are no obvious motor or sensory deficits. Coordination appears grossly intact. Speech is normal. Skin: Skin is warm and dry and no rashes or lesions are noted. Psychiatric: Cooperative, appropriate mood & affect, normal judgment. (Cori Wiseman) Course Vital Signs 11/28/19 19:00 Temperature 98.0 F Pulse Rate 79 Respiratory 18 Rate Blood Pressure 134/90 O2 Sat by Pulse 98 Oximetry Medical Decision Making <Cori Wiseman - Last Filed: 11/28/19 20:50> <Kinjal Smith - Last Filed: 12/01/19 11:40> - Medical Decision Making UA unremarkable. Exam unremarkable. STD testin pending. No obvious abnormality on exam, recommended urology f/u for further evaluation and treatment. Denies testicular pain/swelling none noted on exam. (Cori Wiseman) I was available for consultation in the emergency department. The history and physical exam were done by the midlevel provider. I was consulted for this patients care. I reviewed the case with the midlevel provider and based on their presentation of the patient, I agree with the assessment, medical decision making and plan of care as documented. Chart was dictated using [employer] dictation software. Attempts were made to correct any dictation errors however some typographical errors may persist. Patient was seen during a national state of emergency due to the Covid-19 pandemic. (Kinjal Smith) - Lab Data Lab Results 11/28/19 11/28/19 Range/Units 19:12 19:12 Urine Color Yellow Urine Appearance Clear (Clear) Urine pH 5.5 (5.0-8.0) Ur Specific [place] 1.024 (1.001-1.035) Urine Protein Negative (Negative) Urine Glucose (UA) Negative (Negative) Urine Ketones Negative (Negative) Urine Blood Negative (Negative) Urine Nitrite Negative (Negative) Urine Bilirubin Negative (Negative) Urine Urobilinogen <2.0 (<2.0) mg/dL Ur Leukocyte Esterase Negative (Negative) Chlamydia Source Urine Chlamydia DNA (PCR) Negative (Neg,Equiv) N. gonorrhoeae Source Urine N.gonorrhoeae DNA Probe Negative (Neg,Equiv) Disposition Is patient prescribed a controlled substance at d/c from ED?: No Time of Disposition: 19:38 <Cori Wiseman - Last Filed: 11/28/19 20:50> <Kinjal Smith - Last Filed: 12/01/19 11:40> Clinical Impression: Penile pain Disposition: HOME SELF-CARE Condition: Good Instructions (If sedation given, give patient instructions): Sexually Transmitted Diseases (ED) Additional Instructions: Please use medication as discussed. Please follow-up with urology in next week. Please return to emergency room if the symptoms increase or worsen or for any other concerns. Referrals: Parag Jones MD [Primary Care Provider] - 1-2 days Parag Angel MD [STAFF PHYSICIAN] - 1-2 days
[2019-11-28 19:42] VITALS: BP 134/90; PULSE 79; RESP 18; TEMP 98
[2019-11-30 15:56] LABS: C. trachomatis,PCR Negative (Neg,Equiv); Chlamydia trachomatis Source Urine; N. gonorrhoeae,PCR Negative (Neg,Equiv); Neisseria Source Urine
== END 2019-11-28 20:35 | disposition home or self-care (01) ==
LOC: EC 18:51
DX: N48.89 Other specified disorders of penis (principal); F17.200 Nicotine dependence, unspecified, uncomplicated; Z86.14 Personal history of Methicillin resistant Staphylococcus aureus infection; Z80.9 Family history of malignant neoplasm, unspecified
CPT/HCPCS: 81003; 87491; 87591; 99283

== ENCOUNTER 2020-03-22 17:10 | Emergency (ER) | payer OTHER ==
[2020-03-22 17:22] VITALS: RESP 18
--- NOTE | 2020-03-22 17:57 | ED ---
General Adult HPI - General Chief complaint: ENT Stated complaint: Jaw pain [facility] Time Seen by Provider: 03/22/20 17:23 Source: patient, RN notes reviewed Mode of arrival: ambulatory Limitations: no limitations - History of Present Illness Initial comments: 29-year-old male without any significant past medical history presents to the emergency room for a chief complaint of left-sided jaw pain. Patient reports a bench at work came up and hit him under the jaw. States this happened just prior to arrival. It is painful to open and close his mouth but he is able to do so without difficulty. Patient denies any intraoral injury. Denies headache. Denies any neck pain.Patient has no other complaints at this time including shortness of breath, chest pain, abdominal pain, nausea or vomiting, headache, or visual changes. - Related Data Home Medications Medication Instructions Recorded Confirmed Acetaminophen Tab [Tylenol] 1,000 mg PO Q4H 07/22/18 07/22/18 Allergies Allergy/AdvReac Type Severity Reaction Status Date / Time No Known Allergies Allergy Verified 03/22/20 17:22 Review of Systems ROS Statement: Those systems with pertinent positive or pertinent negative responses have been documented in the HPI. ROS Other: All systems not noted in ROS Statement are negative. Past Medical History Past Medical History: No Reported History Additional Past Medical History / Comment(s): MIGRAINE, SPLINT PERSONALITY DISORDER History of Any Multi-Drug Resistant Organisms: MRSA Date of last positivie culture/infection: 2005 MDRO Source:: buttocks Past Surgical History: No Surgical Hx Reported Past Psychological History: ADD/ADHD, Bipolar, Depression Smoking Status: Current every day smoker Past Alcohol Use History: None Reported Past Drug Use History: None Reported - Past Family History Family Additional Family Medical History / Comment(s): Mother with cancer however patient is not aware which type General Exam Limitations: no limitations General appearance: alert, in no apparent distress Head exam: Present: atraumatic, normocephalic, normal inspection Eye exam: Present: normal appearance, PERRL, EOMI. Absent: scleral icterus, conjunctival injection, periorbital swelling ENT exam: Present: normal exam, mucous membranes moist, TM's normal bilaterally, normal external ear exam, other (Patient has tenderness of the left TMJ, no obvious external signs of trauma. Patient has poor dentition however no acute fractures noted of the teeth.. No trismus whatsoever.) Course Vital Signs 03/22/20 17:17 Temperature 97.9 F Pulse Rate 98 Respiratory 18 Rate Blood Pressure 132/83 O2 Sat by Pulse 97 Oximetry Medical Decision Making - Medical Decision Making X-ray of the mandible shows no acute fractures evident. Temporomandibular junctions appear normal. Patient will take Motrin and Tylenol for pain. He will follow-up with his doctor in one to 2 days. He will return if he has any worsening symptoms. Disposition Clinical Impression: Jaw pain Disposition: HOME SELF-CARE Condition: Good Instructions (If sedation given, give patient instructions): Temporomandibular Disorder (ED) Additional Instructions: Please take Motrin and Tylenol for pain. Please follow-up with your doctor in one to 2 days. If you have any worsening symptoms return to the emergency room. Is patient prescribed a controlled substance at d/c from ED?: No Referrals: Parag Jones MD [Primary Care Provider] - 1-2 days Time of Disposition: 18:44
[2020-03-22] MEDS ORDERED: IBUPROFEN 600 MG TAB PO STA (18:00)
--- NOTE | 2020-03-22 18:33 | XR ---
EXAMINATION TYPE: XR mandible complete DATE OF EXAM: 03/22/2020 COMPARISON: None HISTORY: Pain left-sided impact bottom of the mandible TECHNIQUE: 6 view mandible FINDINGS: No acute fractures are evident. Temporomandibular junctions appear normal. IMPRESSION: 1. Mandible is visualized appears normal. 2. Follow-up exams can be performed as clinically indicated.
[2020-03-22 19:01] VITALS: BP 136/69; PULSE 95; TEMP 97.8
== END 2020-03-22 19:00 | disposition home or self-care (01) ==
LOC: EC 17:10
DX: R68.84 Jaw pain (principal); F17.200 Nicotine dependence, unspecified, uncomplicated; Z79.899 Other long term (current) drug therapy
CPT/HCPCS: 70110; 99283

== ENCOUNTER 2020-04-11 22:13 | Emergency (ER) | payer OTHER ==
[2020-04-11 22:19] VITALS: RESP 18; TEMP 98.2
[2020-04-11] MEDS ORDERED: SODIUM CHLORIDE 0.9% 1,000 ML IV STA (22:50)
[2020-04-11] MEDS ORDERED: KETOROLAC 15 MG/ML 1 ML VIAL IVP STA (22:50)
[2020-04-11] MEDS ORDERED: ONDANSETRON 4 MG/2 ML VIAL IVP STA (22:50)
[2020-04-11 23:16] LABS: Basophils % (A) 1 %; Eosinophils # (A) 0.1 k/uL (0-0.7); Eosinophils % (A) 1 %; HCT 44.2 % (39.0-53.0); Lymphocytes # (A) 3.1 k/uL (1.0-4.8); Lymphocytes % (A) 46 %; MCH 30.4 pg (25.0-35.0); MCV 89.3 fL (80.0-100.0); Mean Platelet Volume 8.5; Monocytes # (A) 0.5 k/uL (0-1.0); Monocytes % (A) 8 %; Neutrophils # (A) 2.8 k/uL (1.3-7.7); Neutrophils % (A) 42 %; Platelet Count 222 k/uL (150-450); RBC 4.94 m/uL (4.30-5.90); RDW 11.7 % (11.5-15.5); WBC 6.6 k/uL (3.8-10.6)
[2020-04-11 23:24] LABS: ALT 19 U/L (4-49); AST 36 U/L (17-59); African American GFR (CKD) >90 (>60 ml/min/1.73 sqM); Albumin 4.4 g/dL (3.5-5.0); Alkaline Phosphatase 59 U/L (38-126); Amylase 94 U/L (30-110); Anion Gap 7 mmol/L; Blood Urea Nitrogen 24 mg/dL (9-20); Calcium 9.8 mg/dL (8.4-10.2); Carbon Dioxide 26 mmol/L (22-30); Chloride 102 mmol/L (98-107); Glucose 89 mg/dL (74-99); Non-African American GFR(CKD) >90 (>60 ml/min/1.73 sqM); Sodium 135 mmol/L (137-145); Total Bilirubin 0.7 mg/dL (0.2-1.3); Total Protein 7.2 g/dL (6.3-8.2)
--- NOTE | 2020-04-11 23:31 | ED ---
Abdominal Pain HPI - General Chief Complaint: Abdominal Pain Stated Complaint: Rt side abd pain Time Seen by Provider: 04/11/20 22:26 Source: patient, RN notes reviewed, old records reviewed Mode of arrival: ambulatory Limitations: no limitations - History of Present Illness Initial Comments: This is a 21-year-old male DF presents today for evaluation of abdominal pain diffuse abdominal pain especially worse after he eats. No medical history no surgical history no travel history no sick contacts. No family members with similar complaints symptoms for a few weeks now. Symptoms are worse today when is wearing a seatbelt in his car. MD Complaint: abdominal pain -: week(s) Location: diffuse, RLQ Radiation: none Migration to: no migration Severity: mild Severity scale (1-10): 3 Quality: cramping, stabbing Consistency: intermittent Improves With: nothing Worsens With: eating Associated Symptoms: diarrhea, anorexia - Related Data Home Medications Medication Instructions Recorded Confirmed No Known Home Medications 04/11/20 04/11/20 Allergies Allergy/AdvReac Type Severity Reaction Status Date / Time No Known Allergies Allergy Verified 04/11/20 23:45 Review of Systems ROS Statement: Those systems with pertinent positive or pertinent negative responses have been documented in the HPI. ROS Other: All systems not noted in ROS Statement are negative. Past Medical History Past Medical History: No Reported History Additional Past Medical History / Comment(s): MIGRAINE, SPLINT PERSONALITY DISORDER, History of Any Multi-Drug Resistant Organisms: MRSA Date of last positivie culture/infection: 2005 MDRO Source:: buttocks Past Surgical History: No Surgical Hx Reported Past Psychological History: ADD/ADHD, Bipolar, Depression Smoking Status: Current every day smoker Past Alcohol Use History: None Reported Past Drug Use History: None Reported - Past Family History Family Additional Family Medical History / Comment(s): Mother with cancer however patient is not aware which type General Exam Limitations: no limitations General appearance: alert, in no apparent distress Head exam: Present: atraumatic, normocephalic, normal inspection Eye exam: Present: normal appearance, PERRL, EOMI. Absent: scleral icterus, conjunctival injection, periorbital swelling ENT exam: Present: normal exam, mucous membranes moist Neck exam: Present: normal inspection. Absent: tenderness, meningismus, lymphadenopathy Respiratory exam: Present: normal lung sounds bilaterally. Absent: respiratory distress, wheezes, rales, rhonchi, stridor Cardiovascular Exam: Present: regular rate, normal rhythm, normal heart sounds. Absent: systolic murmur, diastolic murmur, rubs, gallop, clicks GI/Abdominal exam: Present: soft, normal bowel sounds. Absent: distended, tenderness, guarding, rebound, rigid Extremities exam: Present: normal inspection, full ROM, normal capillary refill. Absent: tenderness, pedal edema, joint swelling, calf tenderness Back exam: Present: normal inspection Neurological exam: Present: alert, oriented X3, CN II-XII intact Psychiatric exam: Present: normal affect, normal mood Skin exam: Present: warm, dry, intact, normal color. Absent: rash Course Vital Signs 04/11/20 22:17 Temperature 98.2 F Pulse Rate 85 Respiratory 18 Rate Blood Pressure 134/83 O2 Sat by Pulse 99 Oximetry - Reevaluation(s) Reevaluation #1: 04/11/20 23:31 Medical records reviewed Reevaluation #2: 04/12/20 00:29 Patient's in no acute distress symptoms improved Reevaluation #3: 04/12/20 00:29 Patient informed symptoms, questions answered Medical Decision Making - Medical Decision Making 29 male to the ED co abd pain, no findings here in the ER, ok for DC home - Lab Data Result diagrams: 04/11/20 23:03 04/11/20 23:03 Lab Results 04/11/20 04/11/20 04/11/20 Range/Units 23:03 23:03 23:03 WBC 6.6 (3.8-10.6) k/uL RBC 4.94 (4.30-5.90) m/uL Hgb 15.0 (13.0-17.5) gm/dL Hct 44.2 (39.0-53.0) % MCV 89.3 (80.0-100.0) fL MCH 30.4 (25.0-35.0) pg MCHC 34.0 (31.0-37.0) g/dL RDW 11.7 (11.5-15.5) % Plt Count 222 (150-450) k/uL Neutrophils % 42 % Lymphocytes % 46 % Monocytes % 8 % Eosinophils % 1 % Basophils % 1 % Neutrophils # 2.8 (1.3-7.7) k/uL Lymphocytes # 3.1 (1.0-4.8) k/uL Monocytes # 0.5 (0-1.0) k/uL Eosinophils # 0.1 (0-0.7) k/uL Basophils # 0.0 (0-0.2) k/uL Sodium 135 L (137-145) mmol/L Potassium 4.0 (3.5-5.1) mmol/L Chloride 102 (98-107) mmol/L Carbon Dioxide 26 (22-30) mmol/L Anion Gap 7 mmol/L BUN 24 H (9-20) mg/dL Creatinine 0.78 (0.66-1.25) mg/dL Est GFR (CKD-EPI)AfAm >90 (>60 ml/min/1.73 sqM) Est GFR (CKD-EPI)NonAf >90 (>60 ml/min/1.73 sqM) Glucose 89 (74-99) mg/dL Calcium 9.8 (8.4-10.2) mg/dL Total Bilirubin 0.7 (0.2-1.3) mg/dL AST 36 (17-59) U/L ALT 19 (4-49) U/L Alkaline Phosphatase 59 (38-126) U/L Total Protein 7.2 (6.3-8.2) g/dL Albumin 4.4 (3.5-5.0) g/dL Amylase 94 (30-110) U/L Lipase 145 (23-300) U/L Urine Color Yellow Urine Appearance Clear (Clear) Urine pH 6.5 (5.0-8.0) Ur Specific [place] 1.020 (1.001-1.035) Urine Protein Negative (Negative) Urine Glucose (UA) Negative (Negative) Urine Ketones Negative (Negative) Urine Blood Negative (Negative) Urine Nitrite Negative (Negative) Urine Bilirubin Negative (Negative) Urine Urobilinogen <2.0 (<2.0) mg/dL Ur Leukocyte Esterase Moderate H (Negative) Urine RBC 1 (0-5) /hpf Urine WBC 4 (0-5) /hpf Ur Squamous Epith Cells <1 (0-4) /hpf Amorphous Sediment Rare H (None) /hpf Urine Bacteria Rare H (None) /hpf Hyaline Casts 1 (0-2) /lpf Disposition Clinical Impression: Abdominal pain Disposition: HOME SELF-CARE Condition: Good Instructions (If sedation given, give patient instructions): Abdominal Pain (ED) Is patient prescribed a controlled substance at d/c from ED?: No Referrals: Parag Jones MD [Primary Care Provider] - 1-2 days
--- NOTE | 2020-04-12 00:10 | CT ---
EXAMINATION TYPE: CT abdomen pelvis w con DATE OF EXAM: 04/11/2020 COMPARISON: None HISTORY: RLQ Abd Pain CT DLP: 567.60 mGycm Automated exposure control for dose reduction was used. CONTRAST: Performed with IV Contrast, patient injected with 100 mL of Isovue 300. Lung bases are clear. There is no pleural effusion. Heart size is normal. There is no pericardial eff usion. Liver spleen stomach pancreas gallbladder appear normal. Bile ducts are not dilated. Gallbladder is s omewhat contracted. There is no adrenal mass. Kidneys show satisfactory contrast opacification. There is no hydronephrosi s. Ureters are not dilated. There is no retroperitoneal adenopathy. Bladder distends smoothly. There is no inguinal hernia. There is no free fluid in the pelvis. Lumbar vertebra have normal alignment. Posterior elements are intact. The bony pelvis is intact. There is no mesenteric edema. There is no ascites or free air. There is no sign of a bowel obstructio n. There is air-filled normal-appearing appendix inferior to the cecum and best seen on coronal image 28. There is minimal prostate calcification consistent with old inflammation. IMPRESSION: Negative CT scan abdomen and pelvis. Normal appendix. No renal stone or obstruction. I do not see a c ause for right lower quadrant pain.
[2020-04-12 00:19] LABS: Amorphous Sediment,Urine Rare /hpf; Appearance,Urine Clear (Clear); Bacteria,Urine Rare /hpf; Bilirubin,Urine Negative (Negative); Blood,Urine Negative (Negative); Color,Urine Yellow; Glucose,Urine (UA) Negative (Negative); Hyaline Casts,Urine 1 /lpf (0-2); Ketones,Urine Negative (Negative); Leukocyte Esterase,Urine Moderate (Negative); Nitrite,Urine Negative (Negative); PH, Urine 6.5 (5.0-8.0); Protein,Urine Negative (Negative); RBC,Urine 1 /hpf (0-5); Squamous Epithelial Cell,Urine <1 /hpf (0-4); Urobilinogen,Urine <2.0 mg/dL (<2.0); WBC,Urine 4 /hpf (0-5)
[2020-04-12 00:59] VITALS: BP 122/77; PULSE 82
== END 2020-04-12 00:45 | disposition home or self-care (01) ==
LOC: EC 22:13
DX: R10.84 Generalized abdominal pain (principal); R10.31 Right lower quadrant pain; R19.7 Diarrhea, unspecified; R63.0 Anorexia; F17.200 Nicotine dependence, unspecified, uncomplicated
CPT/HCPCS: 36415; 80053; 82150; 83690; 85025; 74177; 99284; 96374; 96375; 96361; J2405; J1885; Q9967; 81001

== ENCOUNTER 2021-08-07 13:20 | Emergency (ER) | payer OTHER ==
--- NOTE | 2021-08-07 14:16 | ED ---
General Adult HPI - General Chief complaint: Recheck/Abnormal Lab/Rx Stated complaint: Covid Test Time Seen by Provider: 08/07/21 14:16 Source: patient Mode of arrival: ambulatory Limitations: no limitations - History of Present Illness Initial comments: 31-year-old male presents to the emergency room for a COVID-19 test. Patient was exposed last week. Patient feels fine and is not having any symptoms that his work is making him get a test to come back.Patient has no other complaints at this time including shortness of breath, chest pain, abdominal pain, nausea or vomiting, headache, or visual changes. - Related Data Home Medications Medication Instructions Recorded Confirmed No Known Home Medications 04/11/20 04/11/20 Allergies Allergy/AdvReac Type Severity Reaction Status Date / Time No Known Allergies Allergy Verified 08/07/21 13:33 Review of Systems ROS Statement: Those systems with pertinent positive or pertinent negative responses have been documented in the HPI. ROS Other: All systems not noted in ROS Statement are negative. Past Medical History Past Medical History: No Reported History Additional Past Medical History / Comment(s): MIGRAINE, SPLINT PERSONALITY DISORDER, History of Any Multi-Drug Resistant Organisms: MRSA Date of last positivie culture/infection: 2005 MDRO Source:: buttocks Past Surgical History: No Surgical Hx Reported Past Psychological History: ADD/ADHD, Bipolar, Depression Smoking Status: Current every day smoker Past Alcohol Use History: None Reported Past Drug Use History: None Reported - Past Family History Family Additional Family Medical History / Comment(s): Mother with cancer however patient is not aware which type General Exam Limitations: no limitations General appearance: alert, in no apparent distress Head exam: Present: atraumatic Eye exam: Present: normal appearance, PERRL, EOMI. Absent: scleral icterus, conjunctival injection ENT exam: Present: normal exam, mucous membranes moist Neck exam: Present: normal inspection, full ROM Respiratory exam: Absent: respiratory distress Course Vital Signs 08/07/21 08/07/21 13:31 14:25 Temperature 98.0 F 98.2 F Pulse Rate 85 80 Respiratory 18 16 Rate Blood Pressure 135/80 130/77 O2 Sat by Pulse 98 98 Oximetry Medical Decision Making - Medical Decision Making Vitals are stable. COVID-19 test was negative. Patient can be discharged home. - Lab Data Lab Results 08/07/21 Range/Units 13:36 Coronavirus (PCR) Not Detected (Not Detectd) Disposition Clinical Impression: Lab test negative for COVID-19 virus Disposition: HOME SELF-CARE Condition: Good Instructions (If sedation given, give patient instructions): Coronavirus Disease 2019 (COVID-19) Is patient prescribed a controlled substance at d/c from ED?: No Referrals: None,Stated [Primary Care Provider] - 1-2 days Time of Disposition: 14:16
[2021-08-07 14:26] VITALS: BP 130/77; PULSE 80; RESP 16; TEMP 98.2
== END 2021-08-07 14:25 | disposition home or self-care (01) ==
LOC: EC 13:20
DX: Z11.52 Encounter for screening for COVID-19 (principal); Z20.822 Contact with and (suspected) exposure to COVID-19; F17.200 Nicotine dependence, unspecified, uncomplicated
CPT/HCPCS: 87635; 99282

== ENCOUNTER 2021-08-16 01:19 | Emergency (ER) | payer OTHER ==
[2021-08-16 01:24] VITALS: RESP 18; TEMP 98
[2021-08-16] MEDS ORDERED: SODIUM CHLORIDE 0.9% 1,000 ML IV STA (01:32)
--- NOTE | 2021-08-16 01:39 | ED ---
Dizziness HPI - General Chief Complaint: Dizziness Stated Complaint: Dizziness Time Seen by Provider: 08/16/21 01:27 Source: patient, RN notes reviewed Mode of arrival: ambulatory Limitations: no limitations - History of Present Illness Initial Comments: This is a pleasant 31-year-old male who presents emergency department complaining of lightheadedness, increased thirst over the past few days. Patient denies any current pain but states she had some chest discomfort yesterday for about 10 minutes. Patient is really denying any vertiginous symptoms. No vision or hearing complaints. No headache. No imbalance. No focal weakness. No headache, no fever or chills, no changes in vision or hearing, no sore throat or difficulty with speech, no neck pain, no chest pain or shortness of breath, no abdominal pain, no nausea or vomiting, no changes in urination or bowel movements, no numbness or tingling, no extremity pain, no skin rashes or lesions. Patient denies taking any prescription or [id number] medications. Denies alcohol intake. Denies illicit drug abuse. Patient is a cigarette smoker. Patient states this seemed to occur while he was at work. Patient denies any weight change. MD Complaint: lightheadedness - Related Data Home Medications Medication Instructions Recorded Confirmed No Known Home Medications 04/11/20 04/11/20 Allergies Allergy/AdvReac Type Severity Reaction Status Date / Time No Known Allergies Allergy Verified 08/16/21 01:24 Review of Systems ROS Statement: Those systems with pertinent positive or pertinent negative responses have been documented in the HPI. ROS Other: All systems not noted in ROS Statement are negative. Past Medical History Past Medical History: No Reported History Additional Past Medical History / Comment(s): MIGRAINE, SPLINT PERSONALITY DISORDER, History of Any Multi-Drug Resistant Organisms: MRSA Date of last positivie culture/infection: 2005 MDRO Source:: buttocks Past Surgical History: No Surgical Hx Reported Past Psychological History: ADD/ADHD, Bipolar, Depression Smoking Status: Current every day smoker Past Alcohol Use History: None Reported Past Drug Use History: None Reported - Past Family History Family Additional Family Medical History / Comment(s): Mother with cancer however patient is not aware which type General Exam - General Exam Comments Initial Comments: Vital signs are stable, patient afebrile. Patient does not appear to be in any distress. Does not appear to be ill or toxic. Limitations: no limitations General appearance: alert, in no apparent distress Head exam: Present: atraumatic, normocephalic, normal inspection Eye exam: Present: normal appearance, PERRL, EOMI. Absent: scleral icterus, conjunctival injection, periorbital swelling ENT exam: Present: normal exam, normal oropharynx, mucous membranes moist, TM's normal bilaterally, normal external ear exam Neck exam: Present: normal inspection, full ROM. Absent: tenderness, meningismus, lymphadenopathy Respiratory exam: Present: normal lung sounds bilaterally. Absent: respiratory distress, wheezes, rales, rhonchi, stridor, chest wall tenderness, accessory muscle use Cardiovascular Exam: Present: regular rate, normal rhythm, normal heart sounds. Absent: systolic murmur, diastolic murmur, rubs, gallop, clicks GI/Abdominal exam: Present: soft, normal bowel sounds. Absent: distended, tenderness, guarding, rebound, rigid Extremities exam: Present: normal inspection, full ROM, normal capillary refill. Absent: tenderness, pedal edema, joint swelling, calf tenderness Back exam: Present: normal inspection Neurological exam: Present: alert, oriented X3, CN II-XII intact Expanded Patient oriented to: Present: person, place, time Speech: Present: fluid speech Cerebellar function: Finger to Nose: Normal, Heel to [place]: Normal, [place]: Normal Eye Response: (4) open spontaneously Motor Response: (6) obeys commands Verbal Response: (5) oriented Quan Total: 15 Psychiatric exam: Present: normal affect, normal mood Skin exam: Present: warm, dry, intact, normal color. Absent: rash Course Vital Signs 08/16/21 08/16/21 08/16/21 01:22 02:27 05:03 Temperature 98 F Pulse Rate 82 70 Pulse Rate [ 76 Sitting] Pulse Rate [ 77 Standing] Pulse Rate [ 78 Supine] Respiratory 18 18 18 Rate Blood Pressure 127/80 115/67 Blood Pressure 116/76 [Sitting] Blood Pressure 115/82 [Standing] Blood Pressure 120/80 [Supine] O2 Sat by Pulse 98 98 98 Oximetry EKG Findings - EKG Results: EKG: sinus rhythm, normal QRS, normal ST/T, no acute changes (Borderline right axis deviation, rate of 74) Medical Decision Making - Medical Decision Making Patient presents lightheadedness, had some chest discomfort on August 14 precise about 10 minutes. Patient has no cardiac history. No current chest pain. Differential diagnosis would include new-onset diabetes mellitus. Dehydration. Less likely cardiac etiology given the patient's presentation. Patient's heart score is essentially 0. Noted the patient did not present with chest pain. Symptoms are not vertiginous. No focal neurologic deficit. Patient given follow-up information for primary care physician. Patient was told to return to the ER for any signs or symptoms worsen. Told to return immediately if any other problems arise. All questions answered. Treatment plan discussed. Patient in agreement Patient endorsed to Dr. Chan at [phone]....case discussed in detail - Lab Data Result diagrams: 08/16/21 02:16 08/16/21 02:02 Lab Results 08/16/21 08/16/21 08/16/21 Range/Units 01:59 02:02 02:02 WBC (3.8-10.6) k/uL RBC (4.30-5.90) m/uL Hgb (13.0-17.5) gm/dL Hct (39.0-53.0) % MCV (80.0-100.0) fL MCH (25.0-35.0) pg MCHC (31.0-37.0) g/dL RDW (11.5-15.5) % Plt Count (150-450) k/uL MPV Neutrophils % % Lymphocytes % % Monocytes % % Eosinophils % % Basophils % % Neutrophils # (1.3-7.7) k/uL Lymphocytes # (1.0-4.8) k/uL Monocytes # (0-1.0) k/uL Eosinophils # (0-0.7) k/uL Basophils # (0-0.2) k/uL Sodium 136 L (137-145) mmol/L Potassium 3.9 (3.5-5.1) mmol/L Chloride 104 (98-107) mmol/L Carbon Dioxide 25 (22-30) mmol/L Anion Gap 7 mmol/L BUN 19 (9-20) mg/dL Creatinine 0.78 (0.66-1.25) mg/dL Est GFR (CKD-EPI)AfAm >90 (>60 ml/min/1.73 sqM) Est GFR (CKD-EPI)NonAf >90 (>60 ml/min/1.73 sqM) Glucose 93 (74-99) mg/dL POC Glucose (mg/dL) 107 H (75-99) mg/dL POC Glu [employer] ID Dunia Mckee Calcium 9.3 (8.4-10.2) mg/dL Total Bilirubin 1.0 (0.2-1.3) mg/dL AST 26 (17-59) U/L ALT 14 (4-49) U/L Alkaline Phosphatase 50 (38-126) U/L Troponin I <0.012 (0.000-0.034) ng/mL Total Protein 7.1 (6.3-8.2) g/dL Albumin 4.2 (3.5-5.0) g/dL Urine Color Urine Appearance (Clear) Urine pH (5.0-8.0) Ur Specific [place] (1.001-1.035) Urine Protein (Negative) Urine Glucose (UA) (Negative) Urine Ketones (Negative) Urine Blood (Negative) Urine Nitrite (Negative) Urine Bilirubin (Negative) Urine Urobilinogen (<2.0) mg/dL Ur Leukocyte Esterase (Negative) Urine RBC (0-5) /hpf Urine WBC (0-5) /hpf Ur Squamous Epith Cells (0-4) /hpf Urine Bacteria (None) /hpf Urine Mucus (None) /hpf Ur Random Sodium (40-220) mmol/L Urine Opiates Screen (NotDetected) Ur Oxycodone Screen (NotDetected) Urine Methadone Screen (NotDetected) Ur Propoxyphene Screen (NotDetected) Ur Barbiturates Screen (NotDetected) U Tricyclic Antidepress (NotDetected) Ur Phencyclidine Scrn (NotDetected) Ur Amphetamines Screen (NotDetected) U Methamphetamines Scrn (NotDetected) U Benzodiazepines Scrn (NotDetected) Urine Cocaine Screen (NotDetected) U Marijuana (THC) Screen (NotDetected) 08/16/21 08/16/21 08/16/21 Range/Units 02:16 03:00 03:00 WBC 8.1 (3.8-10.6) k/uL RBC 4.88 (4.30-5.90) m/uL Hgb 15.2 (13.0-17.5) gm/dL Hct 43.1 (39.0-53.0) % MCV 88.2 (80.0-100.0) fL MCH 31.0 (25.0-35.0) pg MCHC 35.2 (31.0-37.0) g/dL RDW 11.6 (11.5-15.5) % Plt Count 204 (150-450) k/uL MPV 8.5 Neutrophils % 62 % Lymphocytes % 26 % Monocytes % 7 % Eosinophils % 3 % Basophils % 1 % Neutrophils # 5.0 (1.3-7.7) k/uL Lymphocytes # 2.1 (1.0-4.8) k/uL Monocytes # 0.5 (0-1.0) k/uL Eosinophils # 0.3 (0-0.7) k/uL Basophils # 0.1 (0-0.2) k/uL Sodium (137-145) mmol/L Potassium (3.5-5.1) mmol/L Chloride (98-107) mmol/L Carbon Dioxide (22-30) mmol/L Anion Gap mmol/L BUN (9-20) mg/dL Creatinine (0.66-1.25) mg/dL Est GFR (CKD-EPI)AfAm (>60 ml/min/1.73 sqM) Est GFR (CKD-EPI)NonAf (>60 ml/min/1.73 sqM) Glucose (74-99) mg/dL POC Glucose (mg/dL) (75-99) mg/dL POC Glu Metal [employer]eting Machine Operator ID Calcium (8.4-10.2) mg/dL Total Bilirubin (0.2-1.3) mg/dL AST (17-59) U/L ALT (4-49) U/L Alkaline Phosphatase (38-126) U/L Troponin I (0.000-0.034) ng/mL Total Protein (6.3-8.2) g/dL Albumin (3.5-5.0) g/dL Urine Color Yellow Urine Appearance Clear (Clear) Urine pH 6.0 (5.0-8.0) Ur Specific [place] 1.026 (1.001-1.035) Urine Protein Trace H (Negative) Urine Glucose (UA) Negative (Negative) Urine Ketones Negative (Negative) Urine Blood Negative (Negative) Urine Nitrite Negative (Negative) Urine Bilirubin Negative (Negative) Urine Urobilinogen 12.0 (<2.0) mg/dL Ur Leukocyte Esterase Trace H (Negative) Urine RBC 3 (0-5) /hpf Urine WBC 1 (0-5) /hpf Ur Squamous Epith Cells <1 (0-4) /hpf Urine Bacteria Occasional H (None) /hpf Urine Mucus Rare H (None) /hpf Ur Random Sodium 158 (40-220) mmol/L Urine Opiates Screen Not Detected (NotDetected) Ur Oxycodone Screen Not Detected (NotDetected) Urine Methadone Screen Not Detected (NotDetected) Ur Propoxyphene Screen Not Detected (NotDetected) Ur Barbiturates Screen Not Detected (NotDetected) U Tricyclic Antidepress Not Detected (NotDetected) Ur Phencyclidine Scrn Not Detected (NotDetected) Ur Amphetamines Screen Not Detected (NotDetected) U Methamphetamines Scrn Not Detected (NotDetected) U Benzodiazepines Scrn Not Detected (NotDetected) Urine Cocaine Screen Not Detected (NotDetected) U Marijuana (THC) Screen Not Detected (NotDetected) Disposition Clinical Impression: Lightheadedness Disposition: HOME SELF-CARE Condition: Good Instructions (If sedation given, give patient instructions): Dizziness (ED) Additional Instructions: Follow-up with your regular physician as directed. Return to the ER immediately if any symptoms worsen, new symptoms arise, or any other problems develop. Is patient prescribed a controlled substance at d/c from ED?: No Referrals: Miguel Matthews MD [STAFF PHYSICIAN] - 08/20/21 Time of Disposition: 02:42
--- NOTE | 2021-08-16 02:00 | XR ---
EXAMINATION TYPE: XR chest 1V DATE OF EXAM: 08/16/2021 COMPARISON: 07/22/2018 HISTORY: Short of breath TECHNIQUE: Single view FINDINGS: Heart and mediastinum are normal. Lungs are clear. Diaphragm is normal. Bony thorax is inta ct. IMPRESSION: Normal chest. No change.
[2021-08-16 02:03] LABS: Glucose,Whole Blood 107 mg/dL (75-99)
[2021-08-16 02:45] LABS: Basophils # (A) 0.1 k/uL (0-0.2); Basophils % (A) 1 %; Eosinophils # (A) 0.3 k/uL (0-0.7); Eosinophils % (A) 3 %; HCT 43.1 % (39.0-53.0); HGB 15.2 gm/dL (13.0-17.5); Lymphocytes # (A) 2.1 k/uL (1.0-4.8); Lymphocytes % (A) 26 %; MCHC 35.2 g/dL (31.0-37.0); MCV 88.2 fL (80.0-100.0); Mean Platelet Volume 8.5; Monocytes # (A) 0.5 k/uL (0-1.0); Monocytes % (A) 7 %; Neutrophils % (A) 62 %; Platelet Count 204 k/uL (150-450); RBC 4.88 m/uL (4.30-5.90); RDW 11.6 % (11.5-15.5); WBC 8.1 k/uL (3.8-10.6)
[2021-08-16 03:22] LABS: Appearance,Urine Clear (Clear); Bacteria,Urine Occasional /hpf; Bilirubin,Urine Negative (Negative); Blood,Urine Negative (Negative); Color,Urine Yellow; Glucose,Urine (UA) Negative (Negative); Ketones,Urine Negative (Negative); Leukocyte Esterase,Urine Trace (Negative); Mucus,Urine Rare /hpf; Nitrite,Urine Negative (Negative); Protein,Urine Trace (Negative); RBC,Urine 3 /hpf (0-5); Specific Gravity,Urine 1.026 (1.001-1.035); Squamous Epithelial Cell,Urine <1 /hpf (0-4); WBC,Urine 1 /hpf (0-5)
[2021-08-16 03:30] LABS: Amphetamine Screen,Urine Not Detected (NotDetected); Barbiturate Screen,Urine Not Detected (NotDetected); Benzodiazepines Screen,Urine Not Detected (NotDetected); Cocaine Screen,Urine Not Detected (NotDetected); Methadone Screen, Urine Not Detected (NotDetected); Opiate Screen,Urine Not Detected (NotDetected); Oxycodone Screen, Urine Not Detected (NotDetected); Phencyclidine Screen,Urine Not Detected (NotDetected); Tricyclic Antidepressant,Urine Not Detected (NotDetected); Urn Cannabinoid Scrn Not Detected (NotDetected)
[2021-08-16 03:32] LABS: ALT 14 U/L (4-49); AST 26 U/L (17-59); African American GFR (CKD) >90 (>60 ml/min/1.73 sqM); Albumin 4.2 g/dL (3.5-5.0); Alkaline Phosphatase 50 U/L (38-126); Anion Gap 7 mmol/L; Blood Urea Nitrogen 19 mg/dL (9-20); Calcium 9.3 mg/dL (8.4-10.2); Carbon Dioxide 25 mmol/L (22-30); Chloride 104 mmol/L (98-107); Glucose 93 mg/dL (74-99); Non-African American GFR(CKD) >90 (>60 ml/min/1.73 sqM); Potassium 3.9 mmol/L (3.5-5.1); Sodium 136 mmol/L (137-145); Total Protein 7.1 g/dL (6.3-8.2)
[2021-08-16 05:08] VITALS: BP 115/67; PULSE 70
== END 2021-08-16 05:08 | disposition home or self-care (01) ==
LOC: EC 01:19 → EEVIPCON 01:19 → EC 05:08
DX: R42 Dizziness and giddiness (principal); F90.9 Attention-deficit hyperactivity disorder, unspecified type; F31.9 Bipolar disorder, unspecified; F17.210 Nicotine dependence, cigarettes, uncomplicated
CPT/HCPCS: 36415; 71045; 80053; 80306; 81001; 84300; 84484; 85025; 93005; 99284

== ENCOUNTER 2021-10-13 06:07 | Emergency (ER) | payer OTHER ==
[2021-10-13 06:17] VITALS: BP 155/96; PULSE 72; RESP 16; TEMP 97.7
[2021-10-13] MEDS ORDERED: HYDROcodone/APAP 5-325MG 1 EACH TAB PO STA (06:33)
--- NOTE | 2021-10-13 06:37 | ED ---
ENT HPI - General Chief complaint: Dental/Oral Stated complaint: post op dental pain Time Seen by Provider: 10/13/21 06:19 Source: patient, RN notes reviewed Mode of arrival: ambulatory Limitations: no limitations - History of Present Illness Initial comments: This is a 31-year-old male presents emergency from chief complaint of dental pain. Patient states that he had multiple teeth extracted [facility] on Friday. He states she's had pain ever since. No fevers or chills denies any drainage. Patient states she does have follow-up appointment. Patient was discharged on antibiotics, ibuprofen, Tylenol codeine. Patient states pain is not controlled. - Related Data Home Medications Medication Instructions Recorded Confirmed No Known Home Medications 04/11/20 04/11/20 Allergies Allergy/AdvReac Type Severity Reaction Status Date / Time No Known Allergies Allergy Verified 09/26/21 20:09 Review of Systems ROS Statement: Those systems with pertinent positive or pertinent negative responses have been documented in the HPI. ROS Other: All systems not noted in ROS Statement are negative. Past Medical History Past Medical History: No Reported History Additional Past Medical History / Comment(s): MIGRAINE, SPLINT PERSONALITY DISORDER, History of Any Multi-Drug Resistant Organisms: MRSA Date of last positivie culture/infection: 2005 MDRO Source:: buttocks Past Surgical History: No Surgical Hx Reported Past Psychological History: ADD/ADHD, Bipolar, Depression Smoking Status: Current every day smoker Past Alcohol Use History: None Reported Past Drug Use History: None Reported - Past Family History Family Additional Family Medical History / Comment(s): Mother with cancer however patient is not aware which type General Exam Limitations: no limitations General appearance: alert, in no apparent distress Head exam: Present: atraumatic, normocephalic, normal inspection Eye exam: Present: normal appearance, PERRL, EOMI. Absent: scleral icterus, conjunctival injection, periorbital swelling ENT exam: Present: mucous membranes moist. Absent: normal oropharynx (Multiple lower tooth extractions noted, no erythema or drainage.) Neck exam: Present: normal inspection, full ROM. Absent: tenderness, meningismus, lymphadenopathy Respiratory exam: Present: normal lung sounds bilaterally. Absent: respiratory distress, wheezes, rales, rhonchi, stridor Cardiovascular Exam: Present: regular rate, normal rhythm, normal heart sounds. Absent: systolic murmur, diastolic murmur, rubs, gallop, clicks Course Vital Signs 10/13/21 06:14 Temperature 97.7 F Pulse Rate 72 Respiratory 16 Rate Blood Pressure 155/96 O2 Sat by Pulse 98 Oximetry Medical Decision Making - Medical Decision Making Patient has no obvious abscess, drainage she is currently on antibiotics. Patient discharged pain control return parameters discussed. Disposition Clinical Impression: Status post tooth extraction, Pain, dental Disposition: HOME SELF-CARE Condition: Stable Instructions (If sedation given, give patient instructions): Toothache (ED) Additional Instructions: Please return to the Emergency Department if symptoms worsen or any other concerns. Is patient prescribed a controlled substance at d/c from ED?: No Referrals: None,Stated [Primary Care Provider] - 1-2 days Time of Disposition: 06:36
== END 2021-10-13 06:56 | disposition home or self-care (01) ==
LOC: EC 06:07
DX: K08.89 Other specified disorders of teeth and supporting structures (principal); F17.200 Nicotine dependence, unspecified, uncomplicated; Z98.818 Other dental procedure status
CPT/HCPCS: 99282

== ENCOUNTER 2022-06-09 12:44 | Emergency (ER) | payer OTHER ==
[2022-06-09 13:18] VITALS: RESP 18; TEMP 98.1
[2022-06-09] MEDS ORDERED: KETOROLAC 15 MG/ML 1 ML VIAL IM STA (13:51)
--- NOTE | 2022-06-09 13:55 | ED ---
General Adult HPI - General Chief complaint: Back Pain/Injury Stated complaint: Back Pain Time Seen by Provider: 06/09/22 13:32 Source: patient, RN notes reviewed Mode of arrival: ambulatory Limitations: no limitations - History of Present Illness Initial comments: Patient is a pleasant 31-year-old male presenting to the emergency department with concern with low back pain. Onset of symptoms was close to week ago. Patient does have history of similar symptoms previously. Patient states he was catching his daughter that may have exacerbated this problem. No radiation. No incontinence or retention of bowel or bladder. No weakness or loss of sensation. - Related Data Previous Rx's Medication Instructions Recorded Cyclobenzaprine [Flexeril] 10 mg PO TID PRN #12 tablet 06/09/22 predniSONE [Deltasone] 20 mg PO BID #10 tab 06/09/22 Allergies Allergy/AdvReac Type Severity Reaction Status Date / Time No Known Allergies Allergy Verified 06/09/22 13:18 Review of Systems ROS Statement: Those systems with pertinent positive or pertinent negative responses have been documented in the HPI. ROS Other: All systems not noted in ROS Statement are negative. Constitutional: Denies: fever Eyes: Denies: eye pain ENT: Denies: ear pain Respiratory: Denies: cough, dyspnea Cardiovascular: Denies: chest pain Endocrine: Denies: fatigue Gastrointestinal: Denies: abdominal pain Genitourinary: Denies: dysuria Musculoskeletal: Reports: as per HPI, back pain Skin: Denies: rash Neurological: Denies: weakness, numbness, paresthesias Past Medical History Past Medical History: No Reported History Additional Past Medical History / Comment(s): MIGRAINE, SPLIT PERSONALITY DISORDER, History of Any Multi-Drug Resistant Organisms: MRSA Date of last positivie culture/infection: 2005 MDRO Source:: buttocks Past Surgical History: No Surgical Hx Reported Past Psychological History: ADD/ADHD, Bipolar, Depression Smoking Status: Current every day smoker, Vaper Past Alcohol Use History: None Reported Past Drug Use History: None Reported - Past Family History Family Additional Family Medical History / Comment(s): Mother with cancer however patient is not aware which type General Exam Limitations: no limitations General appearance: alert, in no apparent distress Head exam: Present: normocephalic Eye exam: Present: normal appearance Neck exam: Present: normal inspection Respiratory exam: Present: normal lung sounds bilaterally Cardiovascular Exam: Present: regular rate, normal rhythm Expanded Peripheral pulses: 2+: Posterior Tibialis (R), Posterior Tibialis (L) GI/Abdominal exam: Present: soft. Absent: tenderness, pulsatile mass Extremities exam: Present: normal inspection Back exam: Present: normal inspection Neurological exam: Present: alert. Absent: motor sensory deficit Psychiatric exam: Present: normal affect, normal mood Skin exam: Present: normal color Course Vital Signs 06/09/22 13:14 Temperature 98.1 F Pulse Rate 86 Respiratory 18 Rate Blood Pressure 118/62 O2 Sat by Pulse 98 Oximetry Disposition Clinical Impression: Low back pain Disposition: HOME SELF-CARE Condition: Stable Instructions (If sedation given, give patient instructions): Acute Low Back Pain (ED) Additional Instructions: please do follow-up with primary care physician in the next day or 2 for recheck. Prescriptions have been sent to pharmacy. please return for increased pain, fever,weakness, loss of control of bowel or bladder, worsening symptoms or other concerns. Prescriptions: predniSONE [Deltasone] 20 mg PO BID #10 tab Cyclobenzaprine [Flexeril] 10 mg PO TID PRN #12 tablet PRN Reason: Pain Is patient prescribed a controlled substance at d/c from ED?: No Referrals: Greg Batres MD [STAFF PHYSICIAN] - 1-2 days Time of Disposition: 13:53
[2022-06-09 14:24] VITALS: BP 132/82; PULSE 65
== END 2022-06-09 14:24 | disposition home or self-care (01) ==
LOC: EC 12:44
DX: M54.50 Low back pain, unspecified (principal); F90.9 Attention-deficit hyperactivity disorder, unspecified type; F31.9 Bipolar disorder, unspecified; F17.200 Nicotine dependence, unspecified, uncomplicated; F17.290 Nicotine dependence, other tobacco product, uncomplicated
CPT/HCPCS: 99283; 96372; J1885

== ENCOUNTER 2022-07-01 12:05 | Emergency (ER) | payer OTHER ==
--- NOTE | 2022-07-01 12:23 | ED ---
General Adult HPI - General Source: patient, RN notes reviewed Mode of arrival: ambulatory Limitations: no limitations <Montrell Dexter - Last Filed: 07/01/22 12:22> <Norm Richardson - Last Filed: 07/01/22 23:02> - General Stated complaint: headache Time Seen by Provider: 07/01/22 12:22 - History of Present Illness Initial comments: 31-year-old male presents emergency department to complaint of headache, fever congestion. Patient states symptoms started last night with headache he had a temperature of 100.3. He does complain of severe body aches, mild congestion. He states his work recommended him to get tested for COVID-19. Patient denies any GI symptoms patient offers no complaints. (Montrell Dexter) - Related Data Previous Rx's Medication Instructions Recorded Cyclobenzaprine [Flexeril] 10 mg PO TID PRN #12 tablet 06/09/22 predniSONE [Deltasone] 20 mg PO BID #10 tab 06/09/22 Allergies Allergy/AdvReac Type Severity Reaction Status Date / Time No Known Allergies Allergy Verified 07/01/22 12:37 Review of Systems ROS Other: All systems not noted in ROS Statement are negative. <Montrell Dexter - Last Filed: 07/01/22 12:22> ROS Other: All systems not noted in ROS Statement are negative. <Norm Richardson - Last Filed: 07/01/22 23:02> ROS Statement: Those systems with pertinent positive or pertinent negative responses have been documented in the HPI. Past Medical History Past Medical History: No Reported History Additional Past Medical History / Comment(s): MIGRAINE, SPLIT PERSONALITY DISORDER, History of Any Multi-Drug Resistant Organisms: MRSA Date of last positivie culture/infection: 2005 MDRO Source:: buttocks Past Surgical History: No Surgical Hx Reported Past Psychological History: ADD/ADHD, Bipolar, Depression Smoking Status: Current every day smoker, Vaper Past Alcohol Use History: None Reported Past Drug Use History: None Reported - Past Family History Family Additional Family Medical History / Comment(s): Mother with cancer however patient is not aware which type <Montrell Dexter - Last Filed: 07/01/22 12:22> General Exam General appearance: alert, in no apparent distress Head exam: Present: atraumatic Eye exam: Absent: scleral icterus, conjunctival injection, periorbital swelling ENT exam: Present: mucous membranes moist Expanded Mouth exam: Present: tongue normal, tongue elevation. Absent: drooling, trismus, muffled voice Throat exam: negative: tonsillar erythema, tonsillomegaly, R peritonsillar mass, L peritonsillar mass Neck exam: Present: full ROM. Absent: tenderness, meningismus, lymphadenopathy Respiratory exam: Present: normal lung sounds bilaterally. Absent: respiratory distress, accessory muscle use Cardiovascular Exam: Present: regular rate GI/Abdominal exam: Present: soft Extremities exam: Present: normal capillary refill. Absent: pedal edema Neurological exam: Present: alert, oriented X3 Psychiatric exam: Present: normal affect, normal mood Skin exam: Present: warm, dry, normal color. Absent: cyanosis, diaphoretic, petechiae, pallor <Norm Richardson - Last Filed: 07/01/22 23:02> Course Vital Signs 07/01/22 07/01/22 12:35 15:20 Temperature 98.9 F 97.6 F Pulse Rate 97 72 Respiratory 20 18 Rate Blood Pressure 118/83 117/80 O2 Sat by Pulse 99 98 Oximetry Medical Decision Making <Norm Richardson - Last Filed: 07/01/22 23:02> - Medical Decision Making Patient presents with headache and body aches that started last night. has been sick with the flu for past 2 weeks. States that he does smoke about 3 cigarettes a day. Does have history of bipolar and migraine headaches. States no headache at this time. He was offered Tylenol Motrin and declined. Vital signs are stable, lung sounds are clear. Patient is positive for coronavirus. He will be discharged directed to increase his fluid intake. Vitamin C vitamin D and zinc daily. Self quarantine 5 days from symptom onset. Vital signs are stable, oxygen saturation 98% on room air. Case discussed with Dr. Stern Was pt. sent in by a medical professional or institution? @No Did you speak to anyone other than the patient for history? @No Did you review nursing and triage notes? @Yes I agree Were old charts reviewed? @No Differential Diagnosis? @ MDM Differential Fever: Pneumonia, viral URI, endocarditis, myocarditis, pericarditis, otitis, sinusitis, peritonsillar Abscess, retropharyngeal Abscess, epiglottitis, peritonitis, appendicitis, Ivelisse cystitis, diverticulitis, hepatitis, colitis, UTI, PID, TOA, pyelonephritis, prostatitis, epididymitis, meningitis, encephalitis, pulmonary embolism, CVA, thyroid storm, pancreatitis, adrenal crisis, cavernous sinus thrombosis this is not meant to be an all-inclusive list. EKG interpreted by me (3pts min.)? @Not applicable X-rays interpreted by me (1pt min.)? @Not applicable CT interpreted by me (1pt min.)? @not Applicable U/S interpreted by me (1pt. min.)? @Not applicable What testing was considered but not performed? (CT, X-rays, U/S, labs)? Why? @ [CT, X-rays, U/S, labs? Why?] What meds were considered but not given? Why? @None Did you discuss the management of the patient with other professionals? @No Did you reconcile home meds? @No Was smoking cessation discussed for >3mins.? @Yes explained that smoking can cause chronic illness and prolonged healing time causing inflammation Was critical care preformed (if so, how long)? @No Were there social determinants of health that impacted care today? How? (Homelessness, low income, unemployed, alcoholism, drug addiction, transportation, low edu. Level, literacy, decrease access to med. care, retirement, rehab)? @None Was there de-escalation of care discussed even if they declined? (Discuss DNR or withdrawal of care, Hospice)? @No What co-morbidities impacted this encounter? (DM, HTN, Smoking, COPD, CAD, Cancer, CVA, Hep., AIDS, mental health diagnosis, sleep apnea, morbid obesity)? @Smoker, migraine headaches Was patient admitted / discharged? @Discharged Undiagnosed new problem with uncertain prognosis? @ [none] Drug Therapy requiring intensive monitoring for toxicity (Heparin, Nitro, Insulin, Cardizem)? @No Were any procedures done? @No Diagnosis/symptom? @Coronavirus Acute, or Chronic, or Acute on Chronic? @Acute Uncomplicated (without systemic symptoms) or Complicated (systemic symptoms)? @ [default] Side effects of treatment? @ [none] Exacerbation, Progression, or Severe Exacerbation] @ [no] Poses a threat to life or bodily function? @ [no] (Norm Richardson) - Lab Data Lab Results 07/01/22 Range/Units 12:39 Influenza Type A (PCR) Not Detected (Not Detectd) Influenza Type B (PCR) Not Detected (Not Detectd) RSV (PCR) Not Detected (Not Detectd) SARS-CoV-2 (PCR) Detected A (Not Detectd) Disposition <Montrell Dexter - Last Filed: 07/01/22 12:22> Is patient prescribed a controlled substance at d/c from ED?: No Time of Disposition: 14:04 <Norm Richardson - Last Filed: 07/01/22 23:02> Clinical Impression: Coronavirus infection Disposition: HOME SELF-CARE Condition: Good Instructions (If sedation given, give patient instructions): Coronavirus Disease 2019 (COVID-19) Additional Instructions: Increase your fluid intake. Tylenol and Motrin as needed for any headaches bodyaches or fevers. Take vitamin C, vitamin D and zinc daily to improve your immune health. Self quarantine for 5 days from symptom onset. If no symptoms after 5 days you can go back into public. Referrals: None,Stated [Primary Care Provider] - 1-2 days
[2022-07-01 15:27] VITALS: BP 117/80; PULSE 72; RESP 18; TEMP 97.6
== END 2022-07-01 15:20 | disposition home or self-care (01) ==
LOC: EC 12:05
DX: U07.1 COVID-19 (principal); F17.290 Nicotine dependence, other tobacco product, uncomplicated
CPT/HCPCS: 87636; 99284

== ENCOUNTER 2022-07-18 18:59 | Emergency (ER) | payer OTHER ==
[2022-07-18 19:22] VITALS: RESP 17
[2022-07-18] MEDS ORDERED: PROCHLORPERAZINE INJ 10 MG/2 ML VIAL IVP STA (19:44)
[2022-07-18] MEDS ORDERED: KETOROLAC 15 MG/ML 1 ML VIAL IVP STA (19:44)
[2022-07-18] MEDS ORDERED: diphenhydrAMINE 50 MG/ML 1 ML VIAL IVP STA (19:44)
[2022-07-18] MEDS ORDERED: SODIUM CHLORIDE 0.9% 1,000 ML IV ONE (19:45)
--- NOTE | 2022-07-18 19:51 | ED ---
General Adult HPI - General Chief complaint: Headache Stated complaint: headache Time Seen by Provider: 07/18/22 19:10 Source: patient, RN notes reviewed Mode of arrival: ambulatory Limitations: no limitations - History of Present Illness Initial comments: 31 year old male with no past medical history presents to the emergency department with a chief complaint of headache x 2 days. He reports sudden onset while laying and watching tv. He describes the headache as bilateral that starts at the base of the neck and radiates to the crown of his head. He denies any provoking event or trauma. He admits to accompanying symptoms of nausea. He has tried taking tylenol without relief. He denies vision loss, vision changes, vomiting, photophobia. Denies tobacco use of hx of HTN. - Related Data Home Medications Medication Instructions Recorded Confirmed No Known Home Medications 07/18/22 07/18/22 Allergies Allergy/AdvReac Type Severity Reaction Status Date / Time No Known Allergies Allergy Verified 07/18/22 20:35 Review of Systems ROS Statement: Those systems with pertinent positive or pertinent negative responses have been documented in the HPI. ROS Other: All systems not noted in ROS Statement are negative. Past Medical History Past Medical History: No Reported History Additional Past Medical History / Comment(s): MIGRAINE, SPLIT PERSONALITY DISORDER, History of Any Multi-Drug Resistant Organisms: MRSA Date of last positivie culture/infection: 2005 MDRO Source:: buttocks Past Surgical History: No Surgical Hx Reported Past Psychological History: ADD/ADHD, Bipolar, Depression Smoking Status: Current every day smoker, Vaper Past Alcohol Use History: None Reported Past Drug Use History: None Reported - Past Family History Family Additional Family Medical History / Comment(s): Mother with cancer however patient is not aware which type General Exam Limitations: no limitations General appearance: alert, in no apparent distress Head exam: Present: atraumatic, normocephalic, normal inspection Eye exam: Present: normal appearance, PERRL, EOMI. Absent: scleral icterus, conjunctival injection, periorbital swelling ENT exam: Present: normal exam, mucous membranes moist Neck exam: Present: normal inspection. Absent: tenderness, meningismus, lymphadenopathy Respiratory exam: Present: normal lung sounds bilaterally. Absent: respiratory distress, wheezes, rales, rhonchi, stridor Cardiovascular Exam: Present: regular rate, normal rhythm, normal heart sounds. Absent: systolic murmur, diastolic murmur, rubs, gallop, clicks GI/Abdominal exam: Present: soft, normal bowel sounds. Absent: distended, tenderness, guarding, rebound, rigid Extremities exam: Present: normal inspection, full ROM, normal capillary refill. Absent: tenderness, pedal edema, joint swelling, calf tenderness Back exam: Present: normal inspection Neurological exam: Present: alert, oriented X3, CN II-XII intact Psychiatric exam: Present: normal affect, normal mood Skin exam: Present: warm, dry, intact, normal color. Absent: rash Course Vital Signs 07/18/22 07/18/22 07/18/22 19:02 19:21 20:14 Temperature 98 F Pulse Rate 89 79 77 Respiratory 16 17 17 Rate Blood Pressure 124/84 117/86 123/83 O2 Sat by Pulse 96 98 99 Oximetry 07/18/22 21:00 Temperature 97.8 F Pulse Rate 89 Respiratory 17 Rate Blood Pressure 125/73 O2 Sat by Pulse 99 Oximetry - Reevaluation(s) Reevaluation #1: 07/18/22 21:08 Patient reevaluated. Patient symptomatic relief status post migraine cocktail and fluids. Patient is agreeable to the plan for discharge Medical Decision Making - Medical Decision Making Was pt. sent in by a medical professional or institution (, PA, WELCOME CENTER AGENT, urgent care, hospital, or fpc...) When possible be specific @ -[No] Did you speak to anyone other than the patient for history (EMS, parent, family, police, friend...)? What history was obtained from this source @ -[No] Did you review nursing and triage notes (agree or disagree)? Why? @ -[I reviewed and agree with nursing and triage notes] Were old charts reviewed (outside hosp., previous admission, EMS record, old EKG, old radiological studies, urgent care reports/EKG's, fpc records)? Report findings @ -[No old charts were reviewed] Differential Diagnosis (chest pain, altered mental status, abdominal pain women, abdominal pain men, vaginal bleeding, weakness, fever, dyspnea, syncope, headache, dizziness, GI bleed, back pain, seizure, CVA, palpatations, mental health)? @ -[not applicable] EKG interpreted by me (3pts min.). @ -[As above] X-rays interpreted by me (1pt min.). @ -[None done] CT interpreted by me (1pt min.). @ -[None done] U/S interpreted by me (1pt. min.). @ -[None done] What testing was considered but not performed or refused? (CT, X-rays, U/S, labs)? Why? @ -[None] What meds were considered but not given or refused? Why? @ -[None] Did you discuss the management of the patient with other professionals (professionals i.e. , PA, WELCOME CENTER AGENT, lab, RT, psych nurse, social security benefits interviewer, clay artisan, teacher, special police officer, shoe parts caser)? Give summary @ -[No] Was smoking cessation discussed for >3mins.? @ -[No] Was critical care preformed (if so, how long)? @ -[No] Were there social determinants of health that impacted care today? How? (Homelessness, low income, unemployed, alcoholism, drug addiction, transportation, low edu. Level, literacy, decrease access to med. care, half-way, rehab)? @ -[No] Was there de-escalation of care discussed even if they declined (Discuss DNR or withdrawal of care, Hospice)? DNR status @ -[No] What co-morbidities impacted this encounter? (DM, HTN, Smoking, COPD, CAD, Cancer, CVA, ARF, Chemo, Hep., AIDS, mental health diagnosis, sleep apnea, morbid obesity)? @ -[None] Was patient admitted / discharged? Hospital course, mention meds given and route, prescriptions, significant lab abnormalities, going to OR and other pertinent info. @ -31 year old male presents to the emergency department with a chief complaint o headache.. Physical exam essentially unremarkable. She was given Toradol, compazine and benadrul with symptomatic relief. I discussed the natural history of migraines with the patient. All questions were addressed and return precautions were discussed. Patient was discharged in stable condition with recommend follow up with primary care physician in 1-2 days. Case discussed with VERO Wilson who agrees with the plan of care. Undiagnosed new problem with uncertain prognosis? @ -[No] Drug Therapy requiring intensive monitoring for toxicity (Heparin, Nitro, Insulin, Cardizem)? @ -[No] Were any procedures done? @ -[No] Diagnosis/symptom? @ -headache Acute, or Chronic, or Acute on Chronic? @ -acute Uncomplicated (without systemic symptoms) or Complicated (systemic symptoms)? @ -uncomplicated Side effects of treatment? @ -[No] Exacerbation, Progression, or Severe Exacerbation? @ -[No] Poses a threat to life or bodily function? How? (Chest pain, USA, IA, pneumonia, PE, COPD, DKA, ARF, appy, cholecystitis, CVA, Diverticulitis, Homicidal, Suicidal, threat to staff... and all critical care pts) @ -[No] - Lab Data Result diagrams: 07/18/22 20:03 07/18/22 20:03 Lab Results 07/18/22 07/18/22 Range/Units 20:03 20:03 WBC 5.7 (3.8-10.6) k/uL RBC 5.08 (4.30-5.90) m/uL Hgb 14.9 (13.0-17.5) gm/dL Hct 42.9 (39.0-53.0) % MCV 84.5 (80.0-100.0) fL MCH 29.5 (25.0-35.0) pg MCHC 34.8 (31.0-37.0) g/dL RDW 12.1 (11.5-15.5) % Plt Count 198 (150-450) k/uL MPV 9.1 Neutrophils % 48 % Lymphocytes % 43 % Monocytes % 6 % Eosinophils % 0 % Basophils % 1 % Neutrophils # 2.7 (1.3-7.7) k/uL Lymphocytes # 2.4 (1.0-4.8) k/uL Monocytes # 0.3 (0-1.0) k/uL Eosinophils # 0.0 (0-0.7) k/uL Basophils # 0.0 (0-0.2) k/uL Sodium 137 (137-145) mmol/L Potassium 4.0 (3.5-5.1) mmol/L Chloride 103 (98-107) mmol/L Carbon Dioxide 28 (22-30) mmol/L Anion Gap 6 mmol/L BUN 15 (9-20) mg/dL Creatinine 0.83 (0.66-1.25) mg/dL Est GFR (CKD-EPI)AfAm >90 (>60 ml/min/1.73 sqM) Est GFR (CKD-EPI)NonAf >90 (>60 ml/min/1.73 sqM) Glucose 73 L (74-99) mg/dL Calcium 9.2 (8.4-10.2) mg/dL Disposition Clinical Impression: Headache Disposition: HOME SELF-CARE Condition: Stable Instructions (If sedation given, give patient instructions): Acute Headache (ED) Additional Instructions: PLease return to the nearest emergency department if symptoms worsen or persist. Is patient prescribed a controlled substance at d/c from ED?: No Referrals: None,Stated [Primary Care Provider] - 1-2 days Nilton Fam MD [STAFF PHYSICIAN] - 1-2 days Time of Disposition: 21:34
[2022-07-18 20:59] VITALS: BP 125/73; PULSE 89; TEMP 97.8
[2022-07-18 21:09] LABS: Basophils % (A) 1 %; Eosinophils % (A) 0 %; HCT 42.9 % (39.0-53.0); HGB 14.9 gm/dL (13.0-17.5); Lymphocytes # (A) 2.4 k/uL (1.0-4.8); Lymphocytes % (A) 43 %; MCH 29.5 pg (25.0-35.0); MCHC 34.8 g/dL (31.0-37.0); MCV 84.5 fL (80.0-100.0); Mean Platelet Volume 9.1; Monocytes # (A) 0.3 k/uL (0-1.0); Monocytes % (A) 6 %; Neutrophils # (A) 2.7 k/uL (1.3-7.7); Neutrophils % (A) 48 %; Platelet Count 198 k/uL (150-450); RBC 5.08 m/uL (4.30-5.90); RDW 12.1 % (11.5-15.5); WBC 5.7 k/uL (3.8-10.6)
[2022-07-18 21:16] LABS: African American GFR (CKD) >90 (>60 ml/min/1.73 sqM); Anion Gap 6 mmol/L; Blood Urea Nitrogen 15 mg/dL (9-20); Calcium 9.2 mg/dL (8.4-10.2); Carbon Dioxide 28 mmol/L (22-30); Chloride 103 mmol/L (98-107); Glucose 73 mg/dL (74-99); Non-African American GFR(CKD) >90 (>60 ml/min/1.73 sqM); Sodium 137 mmol/L (137-145)
== END 2022-07-18 21:40 | disposition home or self-care (01) ==
LOC: EC 18:59
DX: R51.9 Headache, unspecified (principal); F31.9 Bipolar disorder, unspecified; F17.290 Nicotine dependence, other tobacco product, uncomplicated
CPT/HCPCS: 36415; 80048; 85025; 99284; 96374; 96375 ×2; 96361; J1200; J0780; J1885

== ENCOUNTER 2022-09-14 14:55 | Emergency (ER) | payer OTHER ==
[2022-09-14 14:59] VITALS: RESP 18; TEMP 98.9
--- NOTE | 2022-09-14 16:46 | ED ---
URI HPI - General Chief Complaint: Upper Respiratory Infection Stated Complaint: weakness Time Seen by Provider: 09/14/22 15:06 Source: patient Mode of arrival: ambulatory Limitations: no limitations - History of Present Illness Initial Comments: This patient is a 32-year-old man who presents with complaint that he is having sore throat, some cough, and some congestion and that is been going on for approximately 3 days. Patient has not noted fever or chills. There is no dyspnea. No difficulty with speech or swallowing. MD Complaint: cough, sore throat Onset/Timin -: days(s) Quality: burning Consistency: intermittent Improves With: nothing Worsens With: nothing Context: sick contacts Associated Symptoms: nasal congestion, sore throat, cough Treatments Prior to Arrival: none - Related Data Previous Rx's Medication Instructions Recorded Penicillin V Potassium [Pen Vee K] 500 mg PO QID #40 tablet 09/14/22 Allergies Allergy/AdvReac Type Severity Reaction Status Date / Time No Known Allergies Allergy Verified 09/14/22 15:31 Review of Systems ROS Statement: Those systems with pertinent positive or pertinent negative responses have been documented in the HPI. ROS Other: All systems not noted in ROS Statement are negative. Constitutional: Denies: fever, chills ENT: Reports: throat pain, congestion Respiratory: Reports: cough. Denies: dyspnea Cardiovascular: Denies: chest pain, palpitations Gastrointestinal: Denies: abdominal pain, nausea, vomiting, diarrhea Genitourinary: Denies: dysuria, hematuria Skin: Denies: rash Neurological: Denies: headache, weakness Past Medical History Past Medical History: No Reported History Additional Past Medical History / Comment(s): MIGRAINE, SPLIT PERSONALITY DISORDER, History of Any Multi-Drug Resistant Organisms: MRSA Date of last positivie culture/infection: 2005 MDRO Source:: buttocks Past Surgical History: No Surgical Hx Reported Past Psychological History: ADD/ADHD, Bipolar, Depression Smoking Status: Current every day smoker, Vaper Past Alcohol Use History: None Reported Past Drug Use History: None Reported - Past Family History Family Additional Family Medical History / Comment(s): Mother with cancer however patient is not aware which type General Exam Limitations: no limitations General appearance: alert Head exam: Present: atraumatic Eye exam: Present: normal appearance ENT exam: Present: mucous membranes moist, other (The patient does have some injection of the pharynx. No exudates.) Neck exam: Present: normal inspection, full ROM, lymphadenopathy (Tender anterior lymph nodes.). Absent: tenderness, meningismus, thyromegaly Respiratory exam: Present: normal lung sounds bilaterally. Absent: respiratory distress, wheezes, rales, rhonchi, stridor Cardiovascular Exam: Present: regular rate, normal rhythm, normal heart sounds. Absent: systolic murmur, diastolic murmur, rubs, gallop GI/Abdominal exam: Present: soft. Absent: distended, tenderness, guarding, rebound, rigid, mass Neurological exam: Present: alert Skin exam: Present: warm, dry, intact, normal color. Absent: rash Course Vital Signs 09/14/22 09/14/22 09/14/22 14:57 15:05 16:59 Temperature 98.9 F 98.9 F Pulse Rate 91 90 Respiratory 18 18 18 Rate Blood Pressure 119/78 128/76 O2 Sat by Pulse 99 98 Oximetry Medical Decision Making - Medical Decision Making Was pt. sent in by a medical professional or institution ( PA, [employer], urgent care, hospital, or penitentiary...) When possible be specific @ -[No] Did you speak to anyone other than the patient for history (EMS, parent, family, police, friend...)? What history was obtained from this source @ -[No] Did you review nursing and triage notes (agree or disagree)? Why? @ -[I reviewed and agree with nursing and triage notes] Were old charts reviewed (outside hosp., previous admission, EMS record, old EKG, old radiological studies, urgent care reports/EKG's, penitentiary records)? Report findings @ -[No old charts were reviewed] Differential Diagnosis (chest pain, altered mental status, abdominal pain women, abdominal pain men, vaginal bleeding, weakness, fever, dyspnea, syncope, headache, dizziness, GI bleed, back pain, seizure, CVA, palpatations, mental health, musculoskeletal)? @ -[Differential diagnosis for pharyngitis including but not limited to viral infection, bacterial infection, fungal infection, mass effect, trauma amongst other conditions EKG interpreted by me (3pts min.). @ -[ X-rays interpreted by me (1pt min.). @ -[None done] CT interpreted by me (1pt min.). @ -[None done] U/S interpreted by me (1pt. min.). @ -[None done] What testing was considered but not performed or refused? (CT, X-rays, U/S, labs )? Why? @ -[None] What meds were considered but not given or refused? Why? @ -[None] Did you discuss the management of the patient with other professionals (professionals i.e. , PA, [employer], lab, RT, psych nurse, outreach and education social worker, test lead, teacher, stream control officer, case packer and sealer)? Give summary @ -[No] Was smoking cessation discussed for >3mins.? @ -[No] Was critical care preformed (if so, how long)? @ -[No] Were there social determinants of health that impacted care today? How? (Homelessness, low income, unemployed, alcoholism, drug addiction, transportation, low edu. Level, literacy, decrease access to med. care, penitentiary, rehab)? @ -[No] Was there de-escalation of care discussed even if they declined (Discuss DNR or withdrawal of care, Hospice)? DNR status @ -[No] What co-morbidities impacted this encounter? (DM, HTN, Smoking, COPD, CAD, Cancer, CVA, ARF, Chemo, Hep., AIDS, mental health diagnosis, sleep apnea, morbid obesity)? @ -[None] Was patient admitted / discharged? Hospital course, mention meds given and route, prescriptions, significant lab abnormalities, going to OR and other pert inent info. @ -[Discharged Undiagnosed new problem with uncertain prognosis? @ -[No] Drug Therapy requiring intensive monitoring for toxicity (Heparin, Nitro, Insulin, Cardizem)? @ -[No] Were any procedures done? @ -[No] Diagnosis/symptom? @ -[Acute strep pharyngitis, uncomplicated Acute, or Chronic, or Acute on Chronic? @ -[default] Uncomplicated (without systemic symptoms) or Complicated (systemic symptoms)? @ -[default] Side effects of treatment? @ -[No] Exacerbation, Progression, or Severe Exacerbation? @ -[No] Poses a threat to life or bodily function? How? (Chest pain, [place], [place], pneumonia, PE, COPD, DKA, ARF, appy, cholecystitis, CVA, Diverticulitis, Homicidal, Suicidal, threat to staff... and all critical care pts) @ -[No] - Lab Data Lab Results 09/14/22 09/14/22 Range/Units 15:51 16:06 Influenza Type A (PCR) Not Detected (Not Detectd) Influenza Type B (PCR) Not Detected (Not Detectd) RSV (PCR) Not Detected (Not Detectd) SARS-CoV-2 (PCR) Not Detected (Not Detectd) Group A Strep (PCR) DETECTED A (Not Detectd) Disposition Clinical Impression: Strep throat Disposition: HOME SELF-CARE Condition: Good Instructions (If sedation given, give patient instructions): Strep Throat (ED) Prescriptions: Penicillin V Potassium [Pen Vee K] 500 mg PO QID #40 tablet Is patient prescribed a controlled substance at d/c from ED?: No Referrals: None,Stated [Primary Care Provider] - 1-2 days
[2022-09-14] MEDS ORDERED: PENICILLIN V POTASSIUM 250 MG TAB PO STA (17:38)
[2022-09-14 17:52] VITALS: BP 128/76; PULSE 90
== END 2022-09-14 17:53 | disposition home or self-care (01) ==
LOC: EC 14:55
DX: J02.0 Streptococcal pharyngitis (principal); B95.0 Streptococcus, group A, as the cause of diseases classified elsewhere; F31.9 Bipolar disorder, unspecified; F17.290 Nicotine dependence, other tobacco product, uncomplicated; Z20.822 Contact with and (suspected) exposure to COVID-19
CPT/HCPCS: 87636; 87651; 99284

== ENCOUNTER 2022-12-24 22:01 | Emergency (ER) | payer OTHER ==
[2022-12-25] MEDS ORDERED: ONDANSETRON 4 MG ODT STARTER PACK 2 TAB BTL PO STA (01:01)
--- NOTE | 2022-12-25 01:02 | ED ---
Nausea/Vomiting/Diarrhea HPI - General Chief complaint: Nausea/Vomiting/Diarrhea Stated complaint: nausea, vomiting Time Seen by Provider: 12/25/22 00:47 Source: patient, RN notes reviewed Mode of arrival: ambulatory Limitations: no limitations - History of Present Illness Initial comments: This is a 32-year-old male who presents to the emergency department for nausea and vomiting. States that earlier today, he accidentally ate half of a raw chicken nugget. He misread the instructions on the package, and microwaved chicken that he was supposed to put in the oven. Afterwards he had a couple episodes of vomiting at work. While he currently feels fine, he was instructed by his employer to come to the emergency department for evaluation and a work note. He has since been eating without any problems and denies any abdominal pain. Denies any fevers, chills, sore throat, cough, dyspnea, chest pain, palpitations, abdominal pain, diarrhea, back pain, or headaches. MD complaint: nausea - Related Data Previous Rx's Medication Instructions Recorded Penicillin V Potassium [Pen Vee K] 500 mg PO QID #40 tablet 09/14/22 Ondansetron Odt [Zofran Odt] 4 mg PO Q8HR PRN #15 tab 12/25/22 Allergies Allergy/AdvReac Type Severity Reaction Status Date / Time No Known Allergies Allergy Verified 09/14/22 15:31 Review of Systems ROS Statement: Those systems with pertinent positive or pertinent negative responses have been documented in the HPI. ROS Other: All systems not noted in ROS Statement are negative. Past Medical History Past Medical History: No Reported History Additional Past Medical History / Comment(s): MIGRAINE, SPLIT PERSONALITY DISORDER, History of Any Multi-Drug Resistant Organisms: MRSA Date of last positivie culture/infection: 2005 MDRO Source:: buttocks Past Surgical History: No Surgical Hx Reported Past Psychological History: ADD/ADHD, Bipolar, Depression Smoking Status: Current every day smoker, Vaper Past Alcohol Use History: None Reported Past Drug Use History: None Reported - Past Family History Family Additional Family Medical History / Comment(s): Mother with cancer however patient is not aware which type General Exam Limitations: no limitations General appearance: alert, in no apparent distress Head exam: Present: atraumatic, normocephalic, normal inspection Respiratory exam: Present: normal lung sounds bilaterally. Absent: respiratory distress, wheezes, rales, rhonchi, stridor Cardiovascular Exam: Present: regular rate, normal rhythm, normal heart sounds. Absent: systolic murmur, diastolic murmur, rubs, gallop, clicks GI/Abdominal exam: Present: soft, normal bowel sounds. Absent: distended, tenderness, guarding, rebound, rigid Neurological exam: Present: alert, oriented X3, CN II-XII intact Psychiatric exam: Present: normal affect, normal mood Skin exam: Present: warm, dry, intact, normal color. Absent: rash Course Vital Signs 12/24/22 12/25/22 22:11 01:38 Temperature 98 F 98.2 F Pulse Rate 85 68 Respiratory 16 20 Rate Blood Pressure 127/80 130/86 O2 Sat by Pulse 97 100 Oximetry Medical Decision Making - Medical Decision Making This is a 32-year-old male who presents to the emergency department for nausea and vomiting. Was pt. sent in by a medical professional or institution? @ -His employer Did you speak to anyone other than the patient for history? @ -No Did you review nursing and triage notes? @ -Yes, and I agree, it is accurate with regards to the patient's symptoms. Were old charts reviewed? @ -No Differential Diagnosis? @ -Differential Nausea and Vomiting: Gastroenteritis, cholecystitis, appendicitis, pancreatitis, migraine, benign positional vertigo, food borne illness, pyelonephritis, irritable bowel syndrome, influenza, Covid, GERD, incarcerated hernia, intestinal obstruction, this is not meant to be an all-inclusive list. EKG interpreted by me (3pts min.)? @ -Not obtained X-rays interpreted by me (1pt min.)? @ -Not obtained CT interpreted by me (1pt min.)? @ -Not obtained U/S interpreted by me (1pt. min.)? @ -Not obtained What testing was considered but not performed? (CT, X-rays, U/S, labs)? Why? @ -None What meds were considered but not given? Why? @ -None Did you discuss the management of the patient with other professionals? @ -No Did you reconcile home meds? @ -No Was smoking cessation discussed for >3mins.? @ -No Was critical care preformed (if so, how long)? @ -No Were there social determinants of health that impacted care today? How? (Homelessness, low income, unemployed, alcoholism, drug addiction, transportation, low edu. Level, literacy, decrease access to med. care, [facility], rehab)? @ -No Was there de-escalation of care discussed even if they declined? (Discuss DNR or withdrawal of care, Hospice)? @ -No What co-morbidities impacted this encounter? (DM, HTN, Smoking, COPD, CAD, Cancer, CVA, Hep., AIDS, mental health diagnosis, sleep apnea, morbid obesity)? @ -None Was patient admitted / discharged? @ -Discharged. Patient was found to be asymptomatic in the emergency department and was eating a bag of chips without any problems. He was given a work note as requested. Discussed that he may still end up getting food poisoning even though he feels fine at this point. Prescription for Zofran provided with dosing instructions reviewed. Advised he slowly advance his diet as tolerated and remain well-hydrated. Undiagnosed new problem with uncertain prognosis? @ -None Drug Therapy requiring intensive monitoring for toxicity (Heparin, Nitro, In sulin, Cardizem)? @ -None Were any procedures done? @ -None Diagnosis/symptom? @ -Nausea and vomiting Acute, or Chronic, or Acute on Chronic? @ -Acute Uncomplicated (without systemic symptoms) or Complicated (systemic symptoms)? @ -Uncomplicated Side effects of treatment? @ -None Exacerbation, Progression, or Severe Exacerbation] @ -Not applicable Poses a threat to life or bodily function? @ -No Return precautions reviewed in depth, the patient is instructed to return to the emergency department with any new, worsening, or concerning symptoms. Patient verbalized understanding. This case was discussed in detail with the attending ED physician, Dr. De Leon. Presentation, findings, and treatment plan discussed in detail as well. Disposition Clinical Impression: Nausea and vomiting Disposition: HOME SELF-CARE Instructions (If sedation given, give patient instructions): Acute Nausea and Vomiting (ED) Additional Instructions: Return to the emergency department with any new, worsening, or concerning symptoms. Take the Zofran up to every 8 hours as needed for nausea and vomiting. Slowly advance your diet as tolerated and remain well-hydrated. Follow up with your primary care provider in 1-2 days. Prescriptions: Ondansetron Odt [Zofran Odt] 4 mg PO Q8HR PRN #15 tab PRN Reason: Nausea And Vomiting Is patient prescribed a controlled substance at d/c from ED?: No Referrals: None,Stated [Primary Care Provider] - 1-2 days
[2022-12-25 01:39] VITALS: BP 130/86; PULSE 68; RESP 20; TEMP 98.2
== END 2022-12-25 01:55 | disposition home or self-care (01) ==
LOC: EC 22:01
DX: R11.2 Nausea with vomiting, unspecified (principal); F17.290 Nicotine dependence, other tobacco product, uncomplicated; Z86.59 Personal history of other mental and behavioral disorders
CPT/HCPCS: 99283; S0119

== ENCOUNTER 2023-02-28 17:04 | Emergency (ER) | payer OTHER ==
[2023-02-28 17:20] VITALS: PULSE 85; RESP 20; TEMP 98.8
[2023-02-28] MEDS ORDERED: SODIUM CHLORIDE 0.9% 1,000 ML IV ONE ×2 (17:32→18:42)
[2023-02-28] MEDS ORDERED: MAG HYDROX/AL HYDROX/SIMETH 30 ML, HYOSCYAMINE ELIXIR 10 ML, LIDOCAINE 2% GLYDO JELLY 1... PO STA ×3 (17:32)
--- NOTE | 2023-02-28 17:34 | ED ---
General Adult HPI - General Chief complaint: Abdominal Pain Stated complaint: Diarrhea Time Seen by Provider: 02/28/23 17:22 Source: patient, RN notes reviewed Mode of arrival: ambulatory Limitations: no limitations - History of Present Illness Initial comments: 32-year-old male presents to the emergency department with a chief complaint of nausea and vomiting. Patient reports that his nausea and vomiting started yesterday accompanied with a headache. He is also complaining of lower abdominal pain. He denies any history of abdominal surgeries. He denies any recent new foods. He does report having similar symptoms to his at home. He is complaining of accompanying chest pain at rest. Denies cardiac history. Denies recent alcohol use. Patient reports that he attempted to eat a [employer] for breakfast however he vomited it quickly. - Related Data Previous Rx's Medication Instructions Recorded Penicillin V Potassium [Pen Vee K] 500 mg PO QID #40 tablet 09/14/22 Ondansetron Odt [Zofran Odt] 4 mg PO Q8HR PRN #15 tab 12/25/22 Allergies Allergy/AdvReac Type Severity Reaction Status Date / Time No Known Allergies Allergy Verified 02/28/23 17:20 Review of Systems ROS Statement: Those systems with pertinent positive or pertinent negative responses have been documented in the HPI. ROS Other: All systems not noted in ROS Statement are negative. Past Medical History Past Medical History: No Reported History Additional Past Medical History / Comment(s): MIGRAINE, SPLIT PERSONALITY DISORDER, History of Any Multi-Drug Resistant Organisms: MRSA Date of last positivie culture/infection: 2005 MDRO Source:: buttocks Past Surgical History: No Surgical Hx Reported Past Psychological History: ADD/ADHD, Bipolar, Depression Smoking Status: Current every day smoker, Vaper Past Alcohol Use History: Occasional Past Drug Use History: None Reported - Past Family History Family Additional Family Medical History / Comment(s): Mother with cancer however patient is not aware which type General Exam - General Exam Comments Initial Comments: General: Alert, in no acute distress Head: atraumatic normocephalic. Eyes PERRL, EOMI intact, mucous membranes moist Respiratory: Lungs clear to auscultation bilaterally Cardiovascular: Heart rate regular rate and rhythm Abdominal: Soft without guarding or rebound , nontender Extremities: Normal inspection with full range of motion and normal capillary refill Neuroogic: alert and oriented 3, CN II-XII intact, able to ambulate with steady gait Skin: warm dry and intact with normal color Limitations: no limitations General appearance: alert, in no apparent distress Head exam: Present: atraumatic, normocephalic, normal inspection Eye exam: Present: normal appearance, PERRL, EOMI. Absent: scleral icterus, co njunctival injection, periorbital swelling ENT exam: Present: normal exam, mucous membranes moist Neck exam: Present: normal inspection. Absent: tenderness, meningismus, lymphadenopathy Respiratory exam: Present: normal lung sounds bilaterally. Absent: respiratory distress, wheezes, rales, rhonchi, stridor Cardiovascular Exam: Present: regular rate, normal rhythm, normal heart sounds. Absent: systolic murmur, diastolic murmur, rubs, gallop, clicks GI/Abdominal exam: Present: soft, normal bowel sounds. Absent: distended, tenderness, guarding, rebound, rigid Extremities exam: Present: normal inspection, full ROM, normal capillary refill. Absent: tenderness, pedal edema, joint swelling, calf tenderness Back exam: Present: normal inspection Neurological exam: Present: alert, oriented X3, CN II-XII intact Psychiatric exam: Present: normal affect, normal mood Skin exam: Present: warm, dry, intact, normal color. Absent: rash Course Vital Signs 02/28/23 02/28/23 17:16 18:00 Temperature 98.8 F Pulse Rate 85 Respiratory 20 Rate Blood Pressure 118/81 133/86 O2 Sat by Pulse 97 99 Oximetry - Reevaluation(s) Reevaluation #1: 02/28/23 18:48 Patient reevaluated. Patient reports symptomatic improvement status post medications and IV fluids. EKG Findings - EKG Comments: EKG Findings:: I interpreted the following: EKG performed at 17:37 rate 71 bpm normal sinus rhythm MN interval 149, QRS duration 98, QT/QTc 355/378 Medical Decision Making - Medical Decision Making Was pt. sent in by a medical professional or institution (, PA, STENCIL MAKER, urgent care, hospital, or correction...) When possible be specific @ -[No] Did you speak to anyone other than the patient for history (EMS, parent, family, police, friend...)? What history was obtained from this source @ -[No] Did you review nursing and triage notes (agree or disagree)? Why? @ -[I reviewed and agree with nursing and triage notes] Were old charts reviewed (outside hosp., previous admission, EMS record, old EKG, old radiological studies, urgent care reports/EKG's, correction records)? Report findings @ -[No old charts were reviewed] Differential Diagnosis (chest pain, altered mental status, abdominal pain women, abdominal pain men, vaginal bleeding, weakness, fever, dyspnea, syncope, headache, dizziness, GI bleed, back pain, seizure, CVA, palpatations, mental health, musculoskeletal)? @ -[not applicable] EKG interpreted by me (3pts min.). @ -[As above] X-rays interpreted by me (1pt min.). @ -[None done] CT interpreted by me (1pt min.). @ -[None done] U/S interpreted by me (1pt. min.). @ -[None done] What testing was considered but not performed or refused? (CT, X-rays, U/S, labs)? Why? @ -Imaging was considered however patient's vital signs stable. Patient is afebrile. Abdominal exam is benign. Agreeable with the plan to start with labs and consider further imaging if concerning abnormalities. What meds were considered but not given or refused? Why? @ -[None] Did you discuss the management of the patient with other professionals (professionals i.e. , PA, STENCIL MAKER, lab, RT, psych nurse, social sciences chair, resource specialist teacher, teacher, chief innovation officer, nurse outreach case manager)? Give summary @ -[No] Was smoking cessation discussed for >3mins.? @ -[No] Was critical care preformed (if so, how long)? @ -[No] Were there social determinants of health that impacted care today? How? (Homelessness, low income, unemployed, alcoholism, drug addiction, transportation, low edu. Level, literacy, decrease access to med. care, longterm, rehab)? @ -[No] Was there de-escalation of care discussed even if they declined (Discuss DNR or withdrawal of care, Hospice)? DNR status @ -[No] What co-morbidities impacted this encounter? (DM, HTN, Smoking, COPD, CAD, Cancer, CVA, ARF, Chemo, Hep., AIDS, mental health diagnosis, sleep apnea, morb id obesity)? @ -[None] Was patient admitted / discharged? Hospital course, mention meds given and route, prescriptions, significant lab abnormalities, going to OR and other pertinent info. @ -Discharged. This is a pleasant 32-year-old male presents the emergency department with nausea and vomiting heart rate regular rate and rhyt hm, lungs clear to auscultation bilaterally, abdomen soft nontender. Patient had extensive lab which were studies drawn in the ED which were essentially unremarkable. I discussed the results in detail with the patient verbalized understanding. He was provided GI cocktail and 1 L IV fluids for symptomatic relief. Recommend close follow up with PCP within 1-2 days. Return precautions were discussed at length. Case discussed Dr. Cao, [facility] who agrees with plan of care Undiagnosed new problem with uncertain prognosis? @ -[No] Drug Therapy requiring intensive monitoring for toxicity (Heparin, Nitro, Insulin, Cardizem)? @ -[No] Were any procedures done? @ -[No] Diagnosis/symptom? @ -Nausea and Vomiting Acute, or Chronic, or Acute on Chronic? @ -Acute Uncomplicated (without systemic symptoms) or Complicated (systemic symptoms)? @ -Uncomplicated Side effects of treatment? @ -[No] Exacerbation, Progression, or Severe Exacerbation? @ -[No] Poses a threat to life or bodily function? How? (Chest pain, USA, [place], pneumonia, PE, COPD, DKA, ARF, appy, cholecystitis, CVA, Diverticulitis, Homicidal, Suicidal, threat to staff... and all critical care pts) @ -Low likelihood - Lab Data Result diagrams: 02/28/23 17:37 02/28/23 17:37 Lab Results 02/28/23 02/28/23 02/28/23 Range/Units 17:37 17:37 17:37 WBC 5.1 (3.8-10.6) k/uL RBC 5.41 (4.30-5.90) m/uL Hgb 15.8 (13.0-17.5) gm/dL Hct 45.7 (39.0-53.0) % MCV 84.6 (80.0-100.0) fL MCH 29.3 (25.0-35.0) pg MCHC 34.7 (31.0-37.0) g/dL RDW 11.9 (11.5-15.5) % Plt Count 191 (150-450) k/uL MPV 9.5 Neutrophils % 54 % Lymphocytes % 34 % Monocytes % 9 % Eosinophils % 1 % Basophils % 0 % Neutrophils # 2.8 (1.3-7.7) k/uL Lymphocytes # 1.7 (1.0-4.8) k/uL Monocytes # 0.4 (0-1.0) k/uL Eosinophils # 0.1 (0-0.7) k/uL Basophils # 0.0 (0-0.2) k/uL Sodium 135 L (137-145) mmol/L Potassium 4.0 (3.5-5.1) mmol/L Chloride 102 (98-107) mmol/L Carbon Dioxide 26 (22-30) mmol/L Anion Gap 7 mmol/L BUN 15 (9-20) mg/dL Creatinine 0.84 (0.66-1.25) mg/dL Est GFR (CKD-EPI)AfAm >90 (>60 ml/min/1.73 sqM) Est GFR (CKD-EPI)NonAf >90 (>60 ml/min/1.73 sqM) Glucose 111 H (74-99) mg/dL Plasma Lactic Acid Rafiq (0.7-2.0) mmol/L Calcium 8.9 (8.4-10.2) mg/dL Total Bilirubin 1.2 (0.2-1.3) mg/dL AST 35 (17-59) U/L ALT 18 (4-49) U/L Alkaline Phosphatase 38 (38-126) U/L Troponin I (0.000-0.034) ng/mL Total Protein 7.7 (6.3-8.2) g/dL Albumin 4.4 (3.5-5.0) g/dL Urine Color Kristin Urine Appearance Clear (Clear) Urine pH 5.5 (5.0-8.0) Ur Specific [place] 1.032 (1.001-1.035) Urine Protein Trace H (Negative) Urine Glucose (UA) Negative (Negative) Urine Ketones Negative (Negative) Urine Blood Small H (Negative) Urine Nitrite Negative (Negative) Urine Bilirubin Negative (Negative) Urine Urobilinogen 2.0 (<2.0) mg/dL Ur Leukocyte Esterase Negative (Negative) Urine RBC 3 (0-5) /hpf Urine WBC 1 (0-5) /hpf Ur Squamous Epith Cells <1 (0-4) /hpf Urine Mucus Few H (None) /hpf Influenza Type A (PCR) (Not Detectd) Influenza Type B (PCR) (Not Detectd) RSV (PCR) (Not Detectd) SARS-CoV-2 (PCR) (Not Detectd) 02/28/23 02/28/23 02/28/23 Range/Units 17:37 17:37 17:37 WBC (3.8-10.6) k/uL RBC (4.30-5.90) m/uL Hgb (13.0-17.5) gm/dL Hct (39.0-53.0) % MCV (80.0-100.0) fL MCH (25.0-35.0) pg MCHC (31.0-37.0) g/dL RDW (11.5-15.5) % Plt Count (150-450) k/uL MPV Neutrophils % % Lymphocytes % % Monocytes % % Eosinophils % % Basophils % % Neutrophils # (1.3-7.7) k/uL Lymphocytes # (1.0-4.8) k/uL Monocytes # (0-1.0) k/uL Eosinophils # (0-0.7) k/uL Basophils # (0-0.2) k/uL Sodium (137-145) mmol/L Potassium (3.5-5.1) mmol/L Chloride (98-107) mmol/L Carbon Dioxide (22-30) mmol/L Anion Gap mmol/L BUN (9-20) mg/dL Creatinine (0.66-1.25) mg/dL Est GFR (CKD-EPI)AfAm (>60 ml/min/1.73 sqM) Est GFR (CKD-EPI)NonAf (>60 ml/min/1.73 sqM) Glucose (74-99) mg/dL Plasma Lactic Acid Rafiq 0.5 L (0.7-2.0) mmol/L Calcium (8.4-10.2) mg/dL Total Bilirubin (0.2-1.3) mg/dL AST (17-59) U/L ALT (4-49) U/L Alkaline Phosphatase (38-126) U/L Troponin I <0.012 (0.000-0.034) ng/mL Total Protein (6.3-8.2) g/dL Albumin (3.5-5.0) g/dL Urine Color Urine Appearance (Clear) Urine pH (5.0-8.0) Ur Specific [place] (1.001-1.035) Urine Protein (Negative) Urine Glucose (UA) (Negative) Urine Ketones (Negative) Urine Blood (Negative) Urine Nitrite (Negative) Urine Bilirubin (Negative) Urine Urobilinogen (<2.0) mg/dL Ur Leukocyte Esterase (Negative) Urine RBC (0-5) /hpf Urine WBC (0-5) /hpf Ur Squamous Epith Cells (0-4) /hpf Urine Mucus (None) /hpf Influenza Type A (PCR) Not Detected (Not Detectd) Influenza Type B (PCR) Not Detected (Not Detectd) RSV (PCR) Not Detected (Not Detectd) SARS-CoV-2 (PCR) Not Detected (Not Detectd) Disposition Clinical Impression: Nausea and vomiting Disposition: HOME SELF-CARE Condition: Stable Instructions (If sedation given, give patient instructions): Acute Nausea and Vomiting (ED), Abdominal Pain (ED) Additional Instructions: Please monitor symptoms closely These return to the nearest emergency department if fever, blood in vomit, blood in stool develop Is patient prescribed a controlled substance at d/c from ED?: No Referrals: None,Stated [Primary Care Provider] - 1-2 days Time of Disposition: 20:10
[2023-02-28 17:52] LABS: Basophils % (A) 0 %; Eosinophils # (A) 0.1 k/uL (0-0.7); Eosinophils % (A) 1 %; HCT 45.7 % (39.0-53.0); HGB 15.8 gm/dL (13.0-17.5); Lymphocytes # (A) 1.7 k/uL (1.0-4.8); Lymphocytes % (A) 34 %; MCH 29.3 pg (25.0-35.0); MCHC 34.7 g/dL (31.0-37.0); MCV 84.6 fL (80.0-100.0); Mean Platelet Volume 9.5; Monocytes # (A) 0.4 k/uL (0-1.0); Monocytes % (A) 9 %; Neutrophils # (A) 2.8 k/uL (1.3-7.7); Neutrophils % (A) 54 %; Platelet Count 191 k/uL (150-450); RBC 5.41 m/uL (4.30-5.90); RDW 11.9 % (11.5-15.5); WBC 5.1 k/uL (3.8-10.6)
[2023-02-28 18:14] LABS: ALT 18 U/L (4-49); AST 35 U/L (17-59); African American GFR (CKD) >90 (>60 ml/min/1.73 sqM); Albumin 4.4 g/dL (3.5-5.0); Alkaline Phosphatase 38 U/L (38-126); Anion Gap 7 mmol/L; Blood Urea Nitrogen 15 mg/dL (9-20); Calcium 8.9 mg/dL (8.4-10.2); Carbon Dioxide 26 mmol/L (22-30); Chloride 102 mmol/L (98-107); Glucose 111 mg/dL (74-99); Non-African American GFR(CKD) >90 (>60 ml/min/1.73 sqM); Sodium 135 mmol/L (137-145); Total Bilirubin 1.2 mg/dL (0.2-1.3); Total Protein 7.7 g/dL (6.3-8.2)
[2023-02-28 18:27] VITALS: BP 133/86
[2023-02-28 19:45] LABS: Appearance,Urine Clear (Clear); Bilirubin,Urine Negative (Negative); Blood,Urine Small (Negative); Glucose,Urine (UA) Negative (Negative); Ketones,Urine Negative (Negative); Leukocyte Esterase,Urine Negative (Negative); Mucus,Urine Few /hpf; Nitrite,Urine Negative (Negative); PH, Urine 5.5 (5.0-8.0); Protein,Urine Trace (Negative); RBC,Urine 3 /hpf (0-5); Specific Gravity,Urine 1.032 (1.001-1.035); Squamous Epithelial Cell,Urine <1 /hpf (0-4); WBC,Urine 1 /hpf (0-5)
[2023-02-28 20:04] LABS: Color,Urine Amber
[2023-02-28] MEDS ORDERED: ONDANSETRON 4 MG ODT STARTER PACK 2 TAB BTL PO STA (20:10)
== END 2023-02-28 20:36 | disposition home or self-care (01) ==
LOC: EC 17:04
DX: R11.2 Nausea with vomiting, unspecified (principal); F17.200 Nicotine dependence, unspecified, uncomplicated; Z86.59 Personal history of other mental and behavioral disorders; Z20.822 Contact with and (suspected) exposure to COVID-19
CPT/HCPCS: 36415; 93005; 80053; 83605; 84484; 85025; 81001; 87636; 99284; 96360; 96361; S0119

== ENCOUNTER 2023-12-04 23:32 | Emergency (ER) | payer OTHER ==
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
[2023-12-05 01:52] VITALS: BP 137/97; PULSE 85; RESP 17; TEMP 98
== END 2023-12-05 01:53 | disposition home or self-care (01) ==
LOC: EC 23:32
DX: M54.2 Cervicalgia (principal); F17.290 Nicotine dependence, other tobacco product, uncomplicated; V49.9XXA Car occupant (driver) (passenger) injured in unspecified traffic accident, initial encounter; Y92.410 Unspecified street and highway as the place of occurrence of the external cause
CPT/HCPCS: 70450; 72125; 99284